=== PATIENT | female | born 1995 | race Caucasian/White ===

== ENCOUNTER 2020-01-21 13:53 | Emergency (ER) | payer BC, SELFPAY ==
--- NOTE | 2020-01-21 14:33 | HMH.EDUTC ---
[facility] [place] Disposition Clinical Impression: Viral syndrome Pharyngitis Qualifiers: Pharyngitis/tonsillitis etiology: unspecified etiology Qualified Code(s): J02.9 - Acute pharyngitis, unspecified Disposition: Home, Self-Care Condition on Discharge: Good Instructions: Sore Throat, DI for Pharyngitis/Tonsillopharyngitis -- Adult Additional Instructions: Drink plenty of fluids. Take tylenol or ibuprofen for pain or fever. Take the medications as directed. Follow up with your regular doctor. GO TO THE ER FOR ANY WORSENING SYMPTOMS FOLLOW THE DIRECTIONS ON THE COVID-19 HAND OUT THAT WE GAVE YOU REGARDING SELF-ISOLATION UNTIL YOU KNOW YOUR COVID-19 RESULTS Prescriptions: Azithromycin [Z-Smooth 250mg Tab*] 250 mg PO UD DOSE PK #6 tab Transmission Status: Received by [email or web address] Referrals: Sana Singleton [Primary Care Provider] - Forms: Work/School Release Time of Disposition: 15:01 Medical Decision Making - Medical Records Medical records reviewed: No: I reviewed the patient's medical records. - Anthony Inquiry Pt receiving controlled substance: No Vital Signs: 01/21/20 14:42 01/21/20 15:08 Temperature 98.3 F 98.3 F Temperature Source Oral Pulse Rate 67 Pulse Rate [Left Brachial] 67 Respiratory Rate 20 20 Blood Pressure 132/96 H Blood Pressure [Left Arm] 132/96 H Blood Pressure Mean [Left Arm] 108 Blood Pressure Source [Left Arm] Automatic Cuff Blood Pressure Position [Left Arm] Sitting 02 Sat by Pulse Oximetry 98 Oxygen Delivery Method Room Air - Lab Data Lab results reviewed: Yes: I reviewed the patient's lab results. Lab Results 01/21/20 14:40: Influenza Type A Ag Negative, Influenza Type B Ag Negative 01/21/20 14:40: Strep Scn [facility] Negative 01/21/20 14:50: COVID-19 PCR Not detected [facility] [place] HPI - General Stated complaint: vomiting,fever,chills Time Seen by Provider: 01/21/20 14:33 - History of Present Illness Provider Complaint: She c/o 3 days of sore throat, dry cough, and feeling bad. She works at a [employer]. She denies any known exposure to COVID-19. - Related Data Home Medications Medication Instructions Recorded Confirmed Buprenorphine HCl/Naloxone HCl 1.5 film PO DAILY 10/03/18 10/03/18 [Suboxone 8 mg-2 mg Sl Film] Previous Rx's Medication Instructions Recorded Nitrofurantoin Monohyd/M-Cryst 100 mg PO BID #6 cap 10/03/18 [Macrobid 100 mg Capsule] Promethazine HCl [Phenergan 25mg 25 mg RC Q6HP PRN #12 supp.rect 10/03/18 Suppository] raNITIdine HCl [Zantac] 150 mg PO BID #14 tab 10/03/18 Azithromycin [Z-Smooth 250mg Tab*] 250 mg PO UD DOSE PK #6 tab 01/21/20 Allergies Allergy/AdvReac Type Severity Reaction Status Date / Time loratadine [From CLARITIN] Allergy Intermediate I-RASH Verified 10/03/18 16:19 ondansetron Allergy Intermediate I-RASH Verified 10/03/18 16:19 [From ZOFRAN ( HYDROCHLORIDE)] Penicillins [PENICILLINS] Allergy Intermediate I-RASH Verified 10/03/18 16:19 acetaminophen [From Lortab] Allergy Verified 01/21/20 14:47 hydrocodone [From Lortab] Allergy Verified 01/21/20 14:47 [facility] History - Hepatitis A Screen Attestation statement:: This patient has been screened for Hepatitis A risk factors. I have reviewed the patient's past medical history: Yes Medical History: Denies:: Diabetes Mellitus Type 1, Diabetes Mellitus Type 2 - Social History Smoking Status: Never smoker Alcohol Intake: never Substance Use Type: former substance user Occupational Status: employed ROS Obtained: Yes All systems reviewed & no additional complaints - Constitutional Constitutional: Reports chills, Reports fever(s), Reports poor appetite, Reports malaise - Eyes Eyes: Denies blurry vision - ENT Ears, Nose, Mouth, and Throat: Denies dizziness - Cardiovascular Cardiovascular: Reports as per HPI Physical Exam - General General appearance: alert, in no apparent distress - Head He
[2020-01-21 14:40] VITALS: BMI 38.0
[2020-01-21 14:42] VITALS: BP 132/96; PULSE 67; RESP 20; TEMP 36.8; O2SAT 98; BMI 38.0
[2020-01-21 14:55] LABS: UTC Influenza A Antigen Negative (Negative); UTC Influenza B Antigen Negative (Negative); UTC Strep Screen (Rapid) Negative (Negative)
[2020-01-21 15:08] VITALS: BP 132/96; PULSE 67; RESP 20; TEMP 36.8; O2SAT 98
[2020-01-23 17:16] LABS: Covid-19 Nasal PCR Sendout UK Not Detected
== END 2020-01-21 15:09 | disposition home or self-care (01) ==
PROVIDERS: Emergency Provider Nurse Practitioner Family; PCP Nurse Practitioner Family
DX: B34.9 Viral infection, unspecified (principal); J02.9 Acute pharyngitis, unspecified; Z88.0 Allergy status to penicillin; Z88.5 Allergy status to narcotic agent; Z03.818 Encounter for observation for suspected exposure to other biological agents ruled out
CPT/HCPCS: 87804; 87880; 99202; U0003

== ENCOUNTER 2020-02-08 16:15 | Emergency (ER) | payer BC, SELFPAY ==
[2020-02-08 16:25] VITALS: BP 113/92; PULSE 74; RESP 16; TEMP 36.6; O2SAT 100; BMI 38.7
[2020-02-08 17:46] VITALS: PULSE 76; RESP 16; O2SAT 98
--- NOTE | 2020-02-08 18:12 | HMH.EDGENADL ---
ED Disposition Clinical Impression: Toothache, Abnormal vaginal bleeding Disposition: Home, Self-Care Condition on Discharge: Good Instructions: DI for Vaginal Bleeding, DI for Dental Pain Additional Instructions: See your dentist next week as scheduled. Toradol for pain. Clindamycin as prescribed. Call Dr. Simpson for follow-up of vaginal bleeding. Additional instructions for DENTAL PROBLEMS: See a dentist as soon as possible for further evaluation. Return immediately if you have an uncontrollable fever greater than 102 degrees, difficulty breathing or shortness of breath, persistent vomiting, or inability to swallow. Prescriptions: Ketorolac Tromethamine [Toradol 10mg tablet] 10 mg PO Q6HP PRN #10 tab PRN Reason: Moderate Pain Transmission Status: Received by [employer] clindamycin HCL [Clindamycin HCl 300mg Cap] 300 mg PO Q6 #28 cap Transmission Status: Received by [employer] Referrals: Isela Byrd [Primary Care Provider] - Ta Berrios MD [Staff Physician] - - Critical Care Critical Care Time: No Attestation: On 02/08/20, the high probability of a clinically significant, sudden or life threatening deterioration of the following system(s) required my full and direct attention, intervention and personal management. The time I documented below is in addition to time spent performing reported procedures but includes the following listed in this critical care notation. Medical Decision Making - Medical Records Medical records reviewed: Yes: I reviewed the patient's medical records. - Anthony Inquiry Pt receiving controlled substance: No Vital Signs: 02/08/20 16:25 02/08/20 17:46 02/08/20 18:48 Temperature 97.9 F 97.9 F Temperature Source Oral Oral Pulse Rate 70 Pulse Rate [Right Brachial] 74 76 Respiratory Rate 16 16 15 Blood Pressure 119/75 Blood Pressure [Right Arm] 113/92 H Blood Pressure Mean [Right Arm] 99 Blood Pressure Source [Right Arm] Automatic Cuff Blood Pressure Position [Right Arm] Sitting 02 Sat by Pulse Oximetry 100 98 Oxygen Delivery Method Room Air Room Air - Lab Data Lab Results 02/08/20 18:29: Urine HCG, Qual Negative Orders (Tests/Meds): ED MEDICATIONS Discontinued Medications Generic Name Dose Route Start Last Admin Trade Name Freq PRN Reason Stop Dose Admin Benzocaine/Butamben/Tetracaine HCl 1 gm 02/08/20 18:45 02/08/20 18:46 Cetacaine [place] TP 02/08/20 18:46 1 gm ONCE ONE Administration Clindamycin HCl 300 mg 02/08/20 18:38 02/08/20 18:41 Cleocin 150mg Capsule PO 02/08/20 18:39 300 mg ONCE ONE Administration Protocol Ketorolac Tromethamine 60 mg 02/08/20 18:38 02/08/20 18:41 Toradol 60mg/2ml Vial IM 02/08/20 18:39 60 mg ONCE ONE Administration Lidocaine HCl 15 ml 02/08/20 18:45 02/08/20 18:47 Lidocaine 2% Viscous Solution 15ml Udc PO 02/08/20 18:46 15 ml ONCE ONE Administration General Adult HPI - General Chief complaint: PAIN Stated complaint: DENTAL PAIN Time Seen by Provider: 02/08/20 18:12 Mode of Arrival: Ambulatory Limitations: No Limitations Description of Symptoms (Recalled from ER Triage Doc. by RN): Toothache - History of Present Illness HPI narrative: Left rearmost mandibular tooth ache for 1 month. Worse over the past week. Saw her dentist about 2-1/2 weeks ago. He told her she needed extracted. She has an appointment in 1 week. States that now she cannot sleep due to the pain. No fever. No facial swelling. Also states that while she is here she wants to let us know that she has had menstrual bleeding for 1 week. Prior tubal ligation. She is to see Dr. Hunter, has not seen a machine brusher in about a year. She is on Suboxone for opiate addiction. - Related Data Home Medications Medication Instructions Recorded Confirmed Buprenorphine HCl/Naloxone HCl 1.5 film PO DAILY 10/03/18 10/03/18 [Suboxone 8 mg-
[2020-02-08 18:33] LABS: Urine Pregnancy, HCG Qual. Negative (Negative)
[2020-02-08 18:48] VITALS: BP 119/75; PULSE 70; RESP 15; TEMP 36.6; O2SAT 99
== END 2020-02-08 18:48 | disposition home or self-care (01) ==
PROVIDERS: Emergency Provider Emergency Medicine; PCP Nurse Practitioner Family
DX: N93.9 Abnormal uterine and vaginal bleeding, unspecified (principal); K08.89 Other specified disorders of teeth and supporting structures
CPT/HCPCS: 81025; 96372; 99282

== ENCOUNTER 2020-05-20 06:28 | Emergency (ER) | payer BC, SELFPAY ==
[2020-05-20 06:36] VITALS: BP 162/90; PULSE 88; RESP 14; TEMP 37; O2SAT 96; BMI 40.7
--- NOTE | 2020-05-20 06:45 | HMH.EDDENT ---
ED Disposition Clinical Impression: Pain, dental Disposition: Home, Self-Care Condition on Discharge: Good Instructions: DI for Dental Pain Additional Instructions: use meds and see dentist and pcp for follow up Prescriptions: Minocycline HCl [Minocycline HCl 100mg Tab*] 100 mg PO BID #20 tab Prescription Printed Ketorolac Tromethamine [Toradol 10mg tablet] 10 mg PO Q6H 5 Days #20 tab Prescription Printed Referrals: Isela Byrd [Primary Care Provider] - - Critical Care Critical Care Time: No Attestation: On 05/20/20, the high probability of a clinically significant, sudden or life threatening deterioration of the following system(s) required my full and direct attention, intervention and personal management. The time I documented below is in addition to time spent performing reported procedures but includes the following listed in this critical care notation. Medical Decision Making - Medical Records Medical records reviewed: Yes: I reviewed the patient's medical records. - Anthony Inquiry Pt receiving controlled substance: No Vital Signs: 05/20/20 06:36 Temperature 98.6 F Temperature Source Oral Pulse Rate [Right Brachial] 88 Respiratory Rate 14 Blood Pressure [Right Arm] 162/90 H Blood Pressure Mean [Right Arm] 114 02 Sat by Pulse Oximetry 96 Orders (Tests/Meds): ED MEDICATIONS Discontinued Medications Generic Name Dose Route Start Last Admin Trade Name Kojo PRN Reason Stop Dose Admin Benzocaine/Butamben/Tetracaine HCl 1 gm 05/20/20 06:42 05/20/20 06:47 Tetracaine/Benzocaine/Butamben 56 Gm [place] TP 05/20/20 06:43 1 gm ONCE ONE Administration Lidocaine HCl 15 ml 05/20/20 06:42 05/20/20 06:47 Lidocaine 2% Viscous Theresa 15ml Udc PO 05/20/20 06:43 15 ml ONCE ONE Administration Dental HPI - General Chief complaint: Dental/Oral Stated complaint: Toothache Time Seen by Provider: 05/20/20 06:45 Mode of Arrival: Ambulatory Source of Information: Patient, Medical Record Limitations: No Limitations Description of Symptoms (Recalled from ER Triage Doc. by RN): pt c/o of throbbing tooth on lt bottom. pt states it broke off on morning. - History of Present Illness HPI Narrative: lt lower dental pain over the last few days MD Complaint: tooth pain Onset (ago): day(s) Severity: moderate Treatment prior to arrival: none - Related Data Home Medications Medication Instructions Recorded Confirmed Buprenorphine HCl/Naloxone HCl 1.5 film PO DAILY 10/03/18 10/03/18 [Suboxone 8 mg-2 mg Sl Film] Azithromycin [Z-Smooth 250mg Tab*] 250 mg PO UD DOSE PK 02/08/20 Nitrofurantoin Monohyd/M-Cryst 100 mg PO BID 02/08/20 [Macrobid 100 mg Capsule] raNITIdine HCl [Zantac] 150 mg PO BID 02/08/20 Previous Rx's Medication Instructions Recorded Promethazine HCl [Phenergan 25mg 25 mg RC Q6HP PRN #12 supp.rect 10/03/18 Suppository] Ketorolac Tromethamine [Toradol 10 mg PO Q6HP PRN #10 tab 02/08/20 10mg tablet] clindamycin HCL [Clindamycin HCl 300 mg PO Q6 #28 cap 02/08/20 300mg Cap] Ketorolac Tromethamine [Toradol 10 mg PO Q6H 5 Days #20 tab 05/20/20 10mg tablet] Minocycline HCl [Minocycline HCl 100 mg PO BID #20 tab 05/20/20 100mg Tab*] Allergies Allergy/AdvReac Type Severity Reaction Status Date / Time loratadine [From CLARITIN] Allergy Intermediate I-RASH Verified 02/08/20 16:30 ondansetron Allergy Intermediate I-RASH Verified 02/08/20 16:30 [From ZOFRAN ( HYDROCHLORIDE)] Penicillins [PENICILLINS] Allergy Intermediate I-RASH Verified 02/08/20 16:30 acetaminophen [From Lortab] Allergy Verified 02/08/20 16:30 hydrocodone [From Lortab] Allergy Verified 02/08/20 16:30 [facility] History - Hepatitis A Screen Drug use history?: No High risk sexual behaviors?: No History of sexually transmitted infection?: No Currently employed?: No Childcare worker?: No Do you have indoor plumbing?: Yes Do
[2020-05-20 07:03] VITALS: BP 147/93; PULSE 84; RESP 14; TEMP 37; O2SAT 97
== END 2020-05-20 07:05 | disposition home or self-care (01) ==
PROVIDERS: Emergency Provider Emergency Medicine; PCP Nurse Practitioner Family
DX: K08.89 Other specified disorders of teeth and supporting structures (principal); Z88.0 Allergy status to penicillin; Z88.5 Allergy status to narcotic agent
CPT/HCPCS: 96375; 99281

== ENCOUNTER 2020-06-11 18:30 | Emergency (ER) | payer BC, SELFPAY ==
--- NOTE | 2020-06-11 | ECG_ITS ---
APPROVED REPORT Exam: Resting ECG HR:65 bpm ECG Measurements Heart Rate 65 AXES [place] 176 P 58 QRSd 86 QRS 38 QT 440 T 37 QTc 457 Conclusion Normal sinus rhythm Normal ECG Electronically signed by : Yohannes Calloway, 06/12/2020 19:37:26
[2020-06-11 18:31] VITALS: BP 135/92; PULSE 67; RESP 16; TEMP 36.6; O2SAT 98; BMI 37.2
[2020-06-11 18:51] VITALS: BP 126/82; BP 135/92; PULSE 67; PULSE 90
--- NOTE | 2020-06-11 18:58 | HMH.EDGENADL ---
ED Disposition Clinical Impression: Dizziness on standing Migraine Qualifiers: Migraine type: with aura Status migrainosus presence: without status migrainosus Intractability: not intractable Qualified Code(s): G43.109 - Migraine with aura, not intractable, without status migrainosus Disposition: Home, Self-Care Condition on Discharge: Good Instructions: DI for Migraine Prescriptions: Meclizine HCl 25 mg PO BID #10 tab Transmission Status: Pending to [facility] Referrals: Isela Byrd [Primary Care Provider] - - Critical Care Critical Care Time: No Attestation: On 06/11/20, the high probability of a clinically significant, sudden or life threatening deterioration of the following system(s) required my full and direct attention, intervention and personal management. The time I documented below is in addition to time spent performing reported procedures but includes the following listed in this critical care notation. Medical Decision Making - Medical Records Medical records reviewed: Yes: I reviewed the patient's medical records. - Anthony Inquiry Pt receiving controlled substance: No Vital Signs: 06/11/20 18:31 06/11/20 18:51 Temperature 98 F Temperature Source Oral Pulse Rate [Orthostatic Lying] 67 Pulse Rate [Orthostatic Standing] 90 Pulse Rate [Radial] 67 Respiratory Rate 16 Blood Pressure [Orthostatic Lying] 135/92 H Blood Pressure [Orthostatic Standing] 126/82 Blood Pressure [Right Arm] 135/92 H Blood Pressure Mean [Right Arm] 106 Blood Pressure Position [Right Arm] Sitting 02 Sat by Pulse Oximetry 98 Oxygen Delivery Method Room Air - Lab Data Lab Results 06/11/20 18:50: Urine Color Yellow, Urine Appearance Clear, Urine pH 6.5, Ur Specific [place]ine 1.025, Urine Protein Negative, Urine Glucose (UA) Negative, Urine Ketones 1+, Urine Blood Negative, Urine Nitrate Negative, Urine Bilirubin Negative, Urine Urobilinogen 0.2, Ur Leukocyte Esterase Negative, Ur Squamous Epith Cells 20-50 06/11/20 18:50: Urine HCG, Qual Negative 06/11/20 19:11: WBC 8.7, RBC 4.75, Hgb 12.0 L, Hct 36.8 L, MCV 77.6 L, MCH 25.3 L, MCHC 32.6, RDW 14.9, Plt Count 378, MPV 8.8, Neut % (Auto) 71.7, Lymph % (Auto) 22.9, [place] % (Auto) 4.2, Eos % (Auto) 0.6, Baso % (Auto) 0.7, Neut # (Auto) 6.3, Lymph # (Auto) 2.0, [place] # (Auto) 0.4, Eos # (Auto) 0.1, Baso # (Auto) 0.1 06/11/20 19:11: Sodium 140, Potassium 3.8, Chloride 100, Carbon Dioxide 32 H, Anion Gap 11.8, BUN 9, Creatinine 0.50 L, Estimated Creat Clear 302 H, Estimated GFR 150, Est GFR ( Amer) 182, Glucose 99, Calcium 9.4, Total Bilirubin 0.5, AST 25, ALT 17, Alkaline Phosphatase 51, Total Protein 8.5 H, Albumin 4.6, Globulin 3.9 H, Albumin/Globulin Ratio 1.2 Result diagrams: 06/11/20 19:11 06/11/20 19:11 Orders (Tests/Meds): ED MEDICATIONS Generic Name Dose Route Start Last Admin Trade Name Freq PRN Reason Stop Dose Admin Sodium Chloride 1,000 mls @ 999 mls/hr 06/11/20 18:45 06/11/20 18:56 Sod Chlor 0.9% 1000ml Bag IV 06/11/20 19:45 999 mls/hr .Q1H1M MIRA Administration Discontinued Medications Generic Name Dose Route Start Last Admin Trade Name Freq PRN Reason Stop Dose Admin Diphenhydramine HCl 25 mg 06/11/20 18:43 06/11/20 19:32 Diphenhydramine 50mg/Ml Vial IV 06/11/20 18:44 25 mg ONCE ONE Administration Ketorolac Tromethamine 30 mg 06/11/20 18:43 06/11/20 19:34 Ketorolac 30mg/Ml Vial IM 06/11/20 18:44 Not Given ONCE ONE Ketorolac Tromethamine 30 mg 06/11/20 19:31 06/11/20 19:32 Ketorolac 30mg/Ml Vial IV 06/11/20 19:32 30 mg ONCE ONE Administration - ECG Data Tracing #1 ECG initial impression date: 06/11/20 ECG initial impression time: 19:52 ECG normal with no acute: arrhythmias, ischemia, conduction abnormalities, chamber hypertrophy - Reevaluation(s) Time: 19:48 Reevaluation #1: On reevaluation, the patient is feeling much better. Repeat neurologic exam is norm
[2020-06-11 19:07] LABS: Microscopic, Urine URINE MICROSCOPIC (MICROSCOPIC)
[2020-06-11 19:14] LABS: Appearance,Urine CLEAR (Clear); Bilirubin,Urine Negative (Negative); Blood, Urine Negative (Negative); Color,Urine YELLOW (Yellow); Glucose,Urine (UA) Negative (Negative); Ketones,Urine 1+ (Negative); Leukocyte Esterase,Urine Negative (Negative); Nitrate,Urine Negative (Negative); PH,Urine 6.5 (5.0-8.5); Protein,Urine Negative (Negative); Specific Gravity, Urine 1.025 (1.005-1.030); Urobilinogen,Urine 0.2 EU/dl (0.2)
[2020-06-11 19:15] LABS: Urine Pregnancy, HCG Qual. Negative (Negative)
[2020-06-11 19:16] LABS: Squamous Epithelial Cell,Urine 20-50 #/hpf (0-5)
[2020-06-11 19:19] LABS: Basophils # 0.1 K/mm3 (0-0.2); Basophils % 0.7 % (0.1-2.0); Eosinophils # 0.1 K/mm3 (0.0-0.4); Eosinophils % 0.6 % (0.1-12.0); Hematocrit 36.8 % (37.0-47.0); Lymphocytes % 22.9 % (10-50); Mean Corpuscular HGB Conc 32.6 g/dL (31.8-35.4); Mean Corpuscular Hemoglobin 25.3 pg (27.0-31.2); Mean Corpuscular Volume 77.6 fl (81-99); Mean Platelet Volume 8.8 fl (7.4-10.4); Monocytes # 0.4 K/mm3 (0.1-1.0); Monocytes % 4.2 % (1.7-9.3); Neutrophils # 6.3 K/mm3 (1.8-7.8); Neutrophils % 71.7 % (37.0-80.0); Platelet Count 378 K/mm3 (142-424); Red Blood Count 4.75 M/mm3 (4.20-5.40); Red Cell Distribution Width 14.9 % (11.5-17.5); White Blood Count 8.7 K/mm3 (4.8-10.8)
[2020-06-11 19:26] LABS: Chloride 100 mmol/L (98-107); Potassium 3.8 mmoL/L (3.5-5.1); Sodium 140 mmol/L (136-145)
[2020-06-11 19:28] LABS: Blood Urea Nitrogen 9 mg/dl (7-17); Creatinine Clearance Estimated 302 mL/min (50-200); Estimated Glomerular Filt Rate 150 ml/min (>60); GFR (African American) 182 ML/MIN (>60)
[2020-06-11 19:29] LABS: Alanine Aminotransferase 17 U/L (12-78); Albumin Level 4.6 g/dl (3.5-5.0); Albumin/Globulin Ratio 1.2 (1.1-1.8); Alkaline Phosphatase 51 U/L (38-126); Anion Gap 11.8 mEq/L (5-15); Aspartate Amino Transferase 25 U/L (14-36); Bilirubin,Total 0.5 mg/dl (0.2-1.3); Calcium 9.4 mg/dl (8.4-10.2); Carbon Dioxide 32 mmol/L (22.0-30.0); Globulin 3.9 g/dL (1.3-3.2); Glucose 99 mg/dl (74-100); Total Protein,Serum 8.5 g/dl (6.3-8.2)
[2020-06-11 20:03] VITALS: BP 135/46; PULSE 72; RESP 16; TEMP 36.7; O2SAT 100
== END 2020-06-11 20:13 | disposition home or self-care (01) ==
PROVIDERS: Emergency Provider Emergency Medicine; PCP Nurse Practitioner Family
DX: R42 Dizziness and giddiness (principal); G43.109 Migraine with aura, not intractable, without status migrainosus
CPT/HCPCS: 80053; 81001; 81025; 85025; 93005; 96365; 96375; 99282

== ENCOUNTER 2020-10-30 16:05 | Observation (INO) | payer BC, SELFPAY ==
[2020-10-30] VITALS (17 sets, daily range): BP systolic 106–169; BP diastolic 54–94; PULSE 67–94; RESP 14–20; TEMP 36.4–43; O2SAT 90–99; BMI 36.8
--- NOTE | 2020-10-30 16:13 | PC.NURSE ---
REPORT CALLED TO SUMAYA LOPEZ RN
--- NOTE | 2020-10-30 16:40 | CT_ITS ---
PROCEDURE INFORMATION: Exam: CT Abdomen And Pelvis With Contrast Exam date and time: 10/30/2020 4:40 PM Age: 25 years old Clinical indication: Abdominal pain; Localized; Right lower quadrant (rlq); Additional info: Rlq pain TECHNIQUE: Imaging protocol: Computed tomography of the abdomen and pelvis with contrast. Radiation optimization: All CT scans at this facility use at least one of these dose optimization techniques: automated exposure control; mA and/or kV adjustment per patient size (includes targeted exams where dose is matched to clinical indication); or iterative reconstruction. Contrast material: ISOVUE; Contrast volume: 75 ml; Contrast route: IV; COMPARISON: [id number] CT abdomen pelvis w con 04/11/2018 8:18 AM FINDINGS: Liver: Normal. No mass. Gallbladder and bile ducts: There has been prior cholecystectomy. Pancreas: Normal. No ductal dilation. Spleen: Normal. No splenomegaly. Adrenal glands: Normal. No mass. Kidneys and ureters: Normal. No hydronephrosis. Stomach and bowel: Unremarkable. No obstruction. No mucosal thickening. Appendix: The appendix is dilated measuring 11 mm and demonstrates surrounding fatty induration with mild mucosal enhancement. No appendicoliths is seen. No associated focal fluid collection to suggest abscess or intraperitoneal air is seen to suggest perforation. These findings are consistent with acute appendicitis. Intraperitoneal space: See Appendix finding. Vasculature: Unremarkable. No abdominal aortic aneurysm. Lymph nodes: Unremarkable. No enlarged lymph nodes. Urinary bladder: Unremarkable as visualized. Reproductive: Unremarkable as visualized. Bones/joints: Unremarkable. No acute fracture. Soft tissues: Unremarkable. IMPRESSION: The appendix is dilated measuring 11 mm and demonstrates surrounding fatty induration with mild mucosal enhancement. No appendicoliths is seen. No associated focal fluid collection to suggest abscess or intraperitoneal air is seen to suggest perforation. These findings are consistent with acute appendicitis.
[2020-10-30 16:49] LABS: Chloride 101 mmol/L (98-107)
[2020-10-30 16:50] LABS: Basophils % 0.5 % (0.1-2.0); Eosinophils # 0.1 K/mm3 (0.0-0.4); Eosinophils % 1.2 % (0.1-12.0); Hemoglobin 9.8 g/dL (12.2-16.2); Lymphocytes # 1.8 K/mm3 (0.7-4.5); Mean Corpuscular HGB Conc 32.8 g/dL (31.8-35.4); Mean Corpuscular Volume 76.3 fl (81-99); Mean Platelet Volume 7.8 fl (7.4-10.4); Monocytes # 0.3 K/mm3 (0.1-1.0); Monocytes % 4.5 % (1.7-9.3); Neutrophils # 4.9 K/mm3 (1.8-7.8); Neutrophils % 68.7 % (37.0-80.0); Platelet Count 361 K/mm3 (142-424); Potassium 3.9 mmoL/L (3.5-5.1); Red Blood Count 3.94 M/mm3 (4.20-5.40); Red Cell Distribution Width 15.9 % (11.5-17.5); Sodium 138 mmol/L (136-145); White Blood Count 7.2 K/mm3 (4.8-10.8)
[2020-10-30 16:52] LABS: Alanine Aminotransferase 18 U/L (12-78); Aspartate Amino Transferase 27 U/L (14-36); Blood Urea Nitrogen 7 mg/dl (7-17); Creatinine Clearance Estimated 287 mL/min (50-200); Estimated Glomerular Filt Rate 149 ml/min (>60); GFR (African American) 180 ML/MIN (>60)
[2020-10-30 16:53] LABS: Albumin Level 4.3 g/dl (3.5-5.0); Albumin/Globulin Ratio 1.3 (1.1-1.8); Alkaline Phosphatase 59 U/L (38-126); Anion Gap 10.9 mEq/L (5-15); Bilirubin,Total 0.2 mg/dl (0.2-1.3); Calcium 8.6 mg/dl (8.4-10.2); Carbon Dioxide 30 mmol/L (22.0-30.0); Globulin 3.3 g/dL (1.3-3.2); Glucose 75 mg/dl (74-100); Lipase 63 U/L (23-300); Total Protein,Serum 7.6 g/dl (6.3-8.2)
[2020-10-30 17:13] LABS: Microscopic, Urine URINE MICROSCOPIC (MICROSCOPIC)
--- NOTE | 2020-10-30 17:13 | HMH.EDABDPAI ---
ED Disposition Clinical Impression: Acute appendicitis Qualifiers: Acute appendicitis type: with localized peritonitis Appendicitis gangrene presence: without gangrene Appendicitis perforation presence: without perforation Appendicitis abscess presence: without abscess Qualified Code(s): K35.30 - Acute appendicitis with localized peritonitis, without perforation or gangrene Disposition: Admitted As Inpatient Condition on Discharge: Serious Instructions: DI for Acute Abdominal Pain Referrals: Isela Byrd [Primary Care Provider] - - Critical Care Critical Care Time: No Attestation: On 10/30/20, the high probability of a clinically significant, sudden or life threatening deterioration of the following system(s) required my full and direct attention, intervention and personal management. The time I documented below is in addition to time spent performing reported procedures but includes the following listed in this critical care notation. Medical Decision Making - Medical Records Medical records reviewed: Yes: I reviewed the patient's medical records. - Anthony Inquiry Pt receiving controlled substance: No Vital Signs: 10/30/20 16:06 10/30/20 18:15 10/30/20 19:00 Temperature 98 F Temperature Source Oral Pulse Rate 89 69 Pulse Rate [Radial] 75 Respiratory Rate 16 Blood Pressure 139/86 131/82 Blood Pressure [Right Radial Artery] 132/74 Blood Pressure Mean [Right Radial Artery] 93 Blood Pressure Position Sitting Blood Pressure Position [Right Radial Artery] Sitting 02 Sat by Pulse Oximetry 98 99 Oxygen Delivery Method Room Air - Lab Data Lab Results 10/30/20 16:11: Urine Color Yellow, Urine Appearance Clear, Urine pH 6.0, Ur Specific [place] >= 1.030, Urine Protein Trace, Urine Glucose (UA) Negative, Urine Ketones Negative, Urine Blood Negative, Urine Nitrate Negative, Urine Bilirubin Negative, Urine Urobilinogen 0.2, Ur Leukocyte Esterase Negative, Urine RBC Occasional, Urine WBC Occasional, Ur Squamous Epith Cells 10-20, Urine Bacteria 1+, Urine Mucus 1+ 10/30/20 16:11: Urine HCG, Qual Negative 10/30/20 16:24: WBC 7.2, RBC 3.94 L, Hgb 9.8 L, Hct 30.0 L, MCV 76.3 L, MCH 25.0 L, MCHC 32.8, RDW 15.9, Plt Count 361, MPV 7.8, Neut % (Auto) 68.7, Lymph % (Auto) 25.0, [place] % (Auto) 4.5, Eos % (Auto) 1.2, Baso % (Auto) 0.5, Neut # (Auto) 4.9, Lymph # (Auto) 1.8, [place] # (Auto) 0.3, Eos # (Auto) 0.1, Baso # (Auto) 0.0 10/30/20 16:24: Sodium 138, Potassium 3.9, Chloride 101, Carbon Dioxide 30, Anion Gap 10.9, BUN 7, Creatinine 0.50 L, Estimated Creat Clear 287, Estimated GFR 149, Est GFR ( Amer) 180, Glucose 75, Calcium 8.6, Total Bilirubin 0.2, AST 27, ALT 18, Alkaline Phosphatase 59, Total Protein 7.6, Albumin 4.3, Globulin 3.3 H, Albumin/Globulin Ratio 1.3 10/30/20 16:24: Lipase 63 Result diagrams: 10/30/20 16:24 10/30/20 16:24 Orders (Tests/Meds): ED MEDICATIONS Generic Name Dose Route Start Last Admin Trade Name Freq PRN Reason Stop Dose Admin Sodium Chloride 1,000 mls @ 999 mls/hr 10/30/20 16:45 10/30/20 16:46 Sod Chlor 0.9% 1000ml Bag IV 10/30/20 17:45 999 mls/hr .Q1H1M MIRA Administration Discontinued Medications Generic Name Dose Route Start Last Admin Trade Name Freq PRN Reason Stop Dose Admin Hydromorphone HCl 2 mg 10/30/20 19:06 10/30/20 19:08 Hydromorphone 2mg/Ml Syringe IV 10/30/20 19:07 Not Given ONCE ONE Hydromorphone HCl 1 mg 10/30/20 19:08 10/30/20 19:09 Hydromorphone 2mg/Ml Syringe IV 10/30/20 19:09 1 mg ONCE ONE Administration Iopamidol 75 ml 10/30/20 18:09 10/30/20 18:10 Iopamidol-370 (76%);100ml Bottle IV 10/30/20 18:10 75 ml ONCE ONE Administration Ketorolac Tromethamine 30 mg 10/30/20 16:41 10/30/20 16:46 Ketorolac 30mg/Ml Vial IV 10/30/20 16:42 30 mg ONCE ONE Administration Morphine Sulfate 4 mg 10/30/20 18:09 10/30/20 18:11 Morphine 4mg/Ml Syringe IV 10/30/20 18:10 4 mg ONCE ONE Ad
--- NOTE | 2020-10-30 17:30 | PC.NURSE ---
lab states approx 5 minutes until result of urine test
[2020-10-30 17:34] LABS: Urine Pregnancy, HCG Qual. Negative (Negative)
[2020-10-30 17:40] LABS: Appearance,Urine CLEAR (Clear); Bilirubin,Urine Negative (Negative); Blood, Urine Negative (Negative); Color,Urine YELLOW (Yellow); Glucose,Urine (UA) Negative (Negative); Ketones,Urine Negative (Negative); Leukocyte Esterase,Urine Negative (Negative); Nitrate,Urine Negative (Negative); Protein,Urine TRACE (Negative); Specific Gravity, Urine >= 1.030 (1.005-1.030); Urobilinogen,Urine 0.2 EU/dl (0.2)
[2020-10-30 18:09] LABS: Bacteria,Urine 1+ /lpf; Mucus,Urine 1+ /lpf; RBC,Urine Occasional #/hpf (0-3); WBC,Urine Occasional #/hpf (0-3)
--- NOTE | 2020-10-30 18:39 | PC.NURSE ---
DR ALBARADO PAGED
--- NOTE | 2020-10-30 18:56 | PC.NURSE ---
PT CHANGED INTO HOSPITAL GOWN AND PERSONAL ITEMS PLACED IN BELONGING BAGS
--- NOTE | 2020-10-30 19:11 | PC.NURSE ---
OR team called in. Spoke with Leslee, and Jillian Seth spoke with admission appliance parts counter clerk reported that she was here in the building.
--- NOTE | 2020-10-30 19:37 | HMH.GSHP ---
HPI HPI: Patient is a 25-year-old female from [place]. She presented to the emergency department with some right lower abdominal discomfort which has been present for the last 3 days. It started on Friday10/27/20 with a dull nagging pain in her right lower side and intensified over the weekend. Associated with some mild nausea, but no vomiting. She states that the pain doubled her over today and is why she presented to the emergency department. She was evaluated emergency department and underwent CT scan which revealed findings of thickened distended appendix with stranding consistent with acute appendicitis. Surgical consultation was obtained. [facility] History I have reviewed the patient's past medical history: Yes Medical History: Denies:: Diabetes Mellitus Type 1, Diabetes Mellitus Type 2 *Have you ever received a pneumonia vaccine?: No *Have you received a flu vaccine this season?: No - *Social History Smoking Status: Never smoker Alcohol Intake: never Substance Use Type: opiates *Occupational Status:: employed *Travel in the last 8 weeks: None Family Hx:: Non-contributory Review of Systems - Review of Systems Review of systems:: pertinent systems reviewed and negative unless documented below - *Neurologic Denies headache(s) Meds Home Medications Medication Instructions Recorded Confirmed Type Buprenorphine HCl/Naloxone HCl 1.5 film PO DAILY 10/03/18 10/30/20 History [Suboxone 8 mg-2 mg Sl Film] raNITIdine HCl [Zantac] 150 mg PO BID 02/08/20 10/30/20 History Fluoxetine HCl 20 mg PO DAILY 10/30/20 10/30/20 History Allergies Allergy/AdvReac Type Severity Reaction Status Date / Time loratadine [From CLARITIN] Allergy Intermediate I-RASH Verified 02/08/20 16:30 ondansetron Allergy Intermediate I-RASH Verified 02/08/20 16:30 [From ZOFRAN ( HYDROCHLORIDE)] Penicillins [PENICILLINS] Allergy Intermediate I-RASH Verified 02/08/20 16:30 acetaminophen [From Lortab] Allergy Verified 02/08/20 16:30 hydrocodone [From Lortab] Allergy Verified 02/08/20 16:30 Exam Vital signs and Labs for Last 24 Hours: Temp Pulse Resp BP Pulse Ox 98 F 69 16 131/82 99 10/30/20 16:06 10/30/20 19:00 10/30/20 16:06 10/30/20 19:00 10/30/20 19:00 Laboratory Results - last 24 hr 10/30/20 16:11: Urine Color Yellow, Urine Appearance Clear, Urine pH 6.0, Ur Specific [place] >= 1.030, Urine Protein Trace, Urine Glucose (UA) Negative, Urine Ketones Negative, Urine Blood Negative, Urine Nitrate Negative, Urine Bilirubin Negative, Urine Urobilinogen 0.2, Ur Leukocyte Esterase Negative, Urine RBC Occasional, Urine WBC Occasional, Ur Squamous Epith Cells 10-20, Urine Bacteria 1+, Urine Mucus 1+ 10/30/20 16:11: Urine HCG, Qual Negative 10/30/20 16:24: WBC 7.2, RBC 3.94 L, Hgb 9.8 L, Hct 30.0 L, MCV 76.3 L, MCH 25.0 L, MCHC 32.8, RDW 15.9, Plt Count 361, MPV 7.8, Neut % (Auto) 68.7, Lymph % (Auto) 25.0, [place] % (Auto) 4.5, Eos % (Auto) 1.2, Baso % (Auto) 0.5, Neut # (Auto) 4.9, Lymph # (Auto) 1.8, [place] # (Auto) 0.3, Eos # (Auto) 0.1, Baso # (Auto) 0.0 10/30/20 16:24: Sodium 138, Potassium 3.9, Chloride 101, Carbon Dioxide 30, Anion Gap 10.9, BUN 7, Creatinine 0.50 L, Estimated Creat Clear 287, Estimated GFR 149, Est GFR ( Amer) 180, Glucose 75, Calcium 8.6, Total Bilirubin 0.2, AST 27, ALT 18, Alkaline Phosphatase 59, Total Protein 7.6, Albumin 4.3, Globulin 3.3 H, Albumin/Globulin Ratio 1.3 10/30/20 16:24: Lipase 63 I & O for Last 24 hours: Intake & Output 10/28/20 10/29/20 10/30/20 10/31/20 11:59 11:59 11:59 11:59 Weight 235 lb - Constitutional no acute distress - *Routine HEENT Exam Head: Present: normocephalic Eye: Present: EOMI, PERRL ENT: Present: mucous membranes moist - *Routine Neck Exam Present: supple. Absent: lymphadenopathy - *Routine Respiratory Exam Present: CTA bilaterally - *Routine Cardiovascular Exam Present: RRR - *Routine Abdominal Exam Present: soft, normoacti
--- NOTE | 2020-10-30 19:49 | HMH.ANESCL ---
[facility] Anesthesia Checklist - Patient Identification Patient Identification: Arm Band - Structural Data Admitted From: Home Planned Operative Procedure/s: Lap. appendectomy Consent for Planned Operative Procedure(s) Verified: Yes - NPO Status Verified Time NPO: 08:00 (Breakfast) - Airway Assessment C-Spine Mobility Assessed: Yes TMJ Mobility Assessed: Yes Dentition: Good Dentition - Neurological Assessment Level of Consciousness: Awake Hx Seizures: No Numbness or tingling in extremities: No - Anesthesia Plan Anesthesia Risk discussed: Yes Anesthesia Plan: Verified ASA Class: II Anesthesia Type: General [facility] History I have reviewed the patient's past medical history: Yes Medical History: Reports:: Anxiety, Depression Denies:: Diabetes Mellitus Type 1, Diabetes Mellitus Type 2 *Have you ever received a pneumonia vaccine?: No *Have you received a flu vaccine this season?: No Anesthesia experience/problems:: None - *Social History Smoking Status: Never smoker Alcohol Intake: never Substance Use Type: opiates *Occupational Status:: employed *Travel in the last 8 weeks: None Family Hx:: Non-contributory
--- NOTE | 2020-10-30 21:18 | HMH.OPNOTE ---
Date of procedure: 10/30/20 Pre-op Diagnosis:: Acute appendicitis Post-op Diagnosis:: Same Procedure performed:: Laparoscopic appendectomy Surgeon:: John Puentes MD FIREWALL SECURITY ENGINEER:: Other Anesthesia: GETA Estimated blood loss (mL): 25 Clinical Note:: 25-year-old female. She states that on 10/28/2019 when she developed right lower quadrant abdominal pain. This persisted and progressed through the weekend. Became more severe and somewhat doubled her over on 10/31/2019. She therefore presented to the emergency department. Work-up included CT scan of the abdomen pelvis which revealed findings of thickened indurated inflamed appendix. Surgical consultation was obtained and arrangements were made for appendectomy. Operative findings:: Patient had a severely inflamed indurated appendix adherent posterior to the ileum. Surrounding tissues were markedly indurated. Operative note:: Consent was obtained patient was taken to the operating room. She was given preoperative intravenous ceftriaxone. In the operating room she was placed in a supine position. General anesthesia was induced via endotracheal tube. Abdomen was prepped and draped in the standard surgical fashion. Infraumbilical skin incision was made and while performing abdominal wall lift Veress needle was inserted. CO2 pneumoperitoneum was achieved to 15 mmHg. 12 mm optical trocar was inserted at the umbilicus. Intraperitoneal contents were visualized. She was positioned in Trendelenburg left side down. 5 mm trocar was inserted in the left lower abdomen. Additional 5 mm trocar was inserted in the right upper abdomen. 30 degree 5 mm laparoscope was inserted through the right upper abdominal trocar site. The appendix was identified and found to be markedly indurated. It was adherent posterior to the terminal ileum to the retroperitoneum. Surrounding tissues were markedly indurated as well and inflamed. Delivery of the appendix anteriorly was profoundly difficult due to its severe inflammation. Ultimately the appendix was freed from its inflammatory adhesions. Mesoappendix was markedly inflamed and indurated. Careful dissection was carried out dividing the mesoappendix with ALEXANDER ultrasonic harmonic jasbir with care taken to coagulate the appendiceal artery and the process. Ultimately dissection was carried down to the appendiceal base which was relatively spared of inflammation. The appendix was divided at its base with an endoscopic SHELBI linear cutting stapling device. Appendix was placed within an Endo Catch retrieval device removed from the peritoneal cavity via the umbilical trocar site which required some generous extension of the fascial incision for delivery of the large indurated appendix. Appendiceal staple line was then inspected for integrity and hemostasis which was assured. Limited irrigation was performed of the pericecal location and pelvis. Irrigation was carried out until clear. Trochars were then removed as CO2 pneumoperitoneum was evacuated. Fascia at the umbilicus was closed with interrupted 0 Vicryl sutures. Local anesthetic was infiltrated. Skin incisions were closed with 4-0 Monocryl in a subcuticular fashion. Steri-Strips and dressings were applied. Condition: stable Disposition: PACU Specimens:: Appendix Complications:: None immediately apparent
--- NOTE | 2020-10-30 21:30 | HMH.ANESI ---
[facility] Anesthesia Record Part I Intake, IV Amount: 1,300 Estimated blood loss (mL): 20 Urine output (mL): 0 Blood Pressure: 141/78 SaO2: 97 Pulse Rate: 94 Respiratory Rate: 14 Temperature: 97.6 F Patient is:: Awake Stable to PACU at:: 21:28
--- NOTE | 2020-10-30 22:11 | PC.NURSE ---
report received from Dorinda in PACU
--- NOTE | 2020-10-30 22:22 | SUR.PHASEI ---
2139 0.5mg dilaudid administered IVP per verbal order Oralia Mauricio 2209 2mg morphine adminstered IVP per verbal order Oralia Mauricio
--- NOTE | 2020-10-30 22:25 | PC.NURSE ---
PATIENT ON UNIT AT THIS TIME VIA STRETCHER AND OR STAFF.
--- NOTE | 2020-10-30 22:35 | PC.NURSE ---
DR. ALBARADO NOTIFIED AT THIS TIME OF PT BEING VERY NAUSEATED. ORDER FOR PHENERGAN 12.5 MG IV Q6H PRN FOR NAUSEA.. ORDER R/V. ALSO, ORDER TO RETIME POST-OP ROCHEPHIN FOR 10/31/20 AT 2130
[2020-10-30 23:13] LABS: Microscopic,Cath URINE MICROSCOPIC (MICROSCOPIC)
[2020-10-30 23:16] LABS: Appearance,Urine/Cath CLEAR (Clear); Bilirubin,Cath Negative (Negative); Blood, Urine/Cath Negative (Negative); Color,Urine/Cath YELLOW (Yellow); Glucose,Urine/Cath (UA) Negative (Negative); Ketones,Urine/Cath Negative (Negative); Leukocyte Esterase,Cath Negative (Negative); Nitrate,Cath Negative (Negative); PH,Urine/Cath 6.5 (5.0-8.5); Protein,Urine/Cath Negative (Negative); Specific Gravity, Urine/Cath 1.015 (1.005-1.030); Urobilinogen,Cath 0.2 EU/dl (0.2)
[2020-10-30 23:24] LABS: Bacteria,Urine/Cath TRACE /lpf
[2020-10-31] VITALS (13 sets, daily range): BP systolic 100–139; BP diastolic 59–82; PULSE 48–83; RESP 17–20; TEMP 36.4–37; O2SAT 97–100
--- NOTE | 2020-10-31 01:00 | PC.NURSE ---
PATIENT AMBULATED TO BATHROOM AT THIS TIME. TOLERATED AMBULATION WELL. VOIDED SATISFACTORY AMOUNT WITHOUT DIFFICULTY.
--- NOTE | 2020-10-31 04:15 | PC.NURSE ---
PT HAS RESTED WELL THIS SHIFT. SHE STRUGGLED WITH NAUSEA AND VOMITING THAT WAS MOSTLY RELIEVED WITH PRN MEDICATION. SHE HAS AMBULATED TO AND FROM THE BATHROOM 3 TIMES AND HAD A STEADY GAIT. SHE HAS DENIED PAIN AND DECLINED ALL PAIN MEDICATION. VSS. IV PATENT AND INFUSING WELL IN THE L A/C. LR RUNNING AT 125ML/HR. SHE IS A&O X4, HER LUNGS ARE CTAB, BOWELS ARE HYPOACTIVE IN ALL QUADRANTS. PATIENT BEGINNING TO TAKE IN CLEAR LIQUIDS AND IS TOLERATING WELL.
--- NOTE | 2020-10-31 06:10 | PC.NURSE ---
LAB AT BEDSIDE
[2020-10-31 06:45] LABS: Basophils % 0.4 % (0.1-2.0); Eosinophils % 0.2 % (0.1-12.0); Hematocrit 28.9 % (37.0-47.0); Hemoglobin 9.5 g/dL (12.2-16.2); Lymphocytes # 1.8 K/mm3 (0.7-4.5); Lymphocytes % 17.2 % (10-50); Mean Corpuscular HGB Conc 32.8 g/dL (31.8-35.4); Mean Corpuscular Hemoglobin 25.2 pg (27.0-31.2); Mean Corpuscular Volume 76.6 fl (81-99); Mean Platelet Volume 7.3 fl (7.4-10.4); Monocytes # 0.3 K/mm3 (0.1-1.0); Monocytes % 3.1 % (1.7-9.3); Neutrophils # 8.1 K/mm3 (1.8-7.8); Neutrophils % 79.2 % (37.0-80.0); Platelet Count 345 K/mm3 (142-424); Red Blood Count 3.77 M/mm3 (4.20-5.40); Red Cell Distribution Width 15.7 % (11.5-17.5); White Blood Count 10.2 K/mm3 (4.8-10.8)
[2020-10-31 07:02] LABS: Chloride 104 mmol/L (98-107); Sodium 137 mmol/L (136-145)
[2020-10-31 07:05] LABS: Blood Urea Nitrogen 2 mg/dl (7-17); Creatinine Clearance Estimated 359 mL/min (50-200); Estimated Glomerular Filt Rate 193 ml/min (>60); GFR (African American) 233 ML/MIN (>60)
--- NOTE | 2020-10-31 07:05 | P.PN_ITS ---
Subjective Narrative: Patient has had some appreciable nausea overnight ultimately relieved with Phenergan. Currently resting comfortably. Progress Note: A&P Assessment and Plan for All Diagnoses:: Continue clear liquids for now. Given the severity of appendicitis continued inpatient stay with antibiotics and possible discharge tomorrow. Exam Vital signs and Labs for Last 24 Hours: Temp Pulse Resp BP Pulse Ox 98.3 F 53 L 17 108/79 L 100 10/31/20 05:30 10/31/20 05:30 10/31/20 05:30 10/31/20 05:30 10/31/20 05:30 Laboratory Results - last 24 hr 10/30/20 16:11: Urine Color Yellow, Urine Appearance Clear, Urine pH 6.0, Ur Specific [place] >= 1.030, Urine Protein Trace, Urine Glucose (UA) Negative, Urine Ketones Negative, Urine Blood Negative, Urine Nitrate Negative, Urine Bilirubin Negative, Urine Urobilinogen 0.2, Ur Leukocyte Esterase Negative, Urine RBC Occasional, Urine WBC Occasional, Ur Squamous Epith Cells 10-20, Urine Bacteria 1+, Urine Mucus 1+ 10/30/20 16:11: Urine HCG, Qual Negative 10/30/20 16:24: WBC 7.2, RBC 3.94 L, Hgb 9.8 L, Hct 30.0 L, MCV 76.3 L, MCH 25.0 L, MCHC 32.8, RDW 15.9, Plt Count 361, MPV 7.8, Neut % (Auto) 68.7, Lymph % (Auto) 25.0, [place] % (Auto) 4.5, Eos % (Auto) 1.2, Baso % (Auto) 0.5, Neut # (Auto) 4.9, Lymph # (Auto) 1.8, [place] # (Auto) 0.3, Eos # (Auto) 0.1, Baso # (Auto) 0.0 10/30/20 16:24: Sodium 138, Potassium 3.9, Chloride 101, Carbon Dioxide 30, Anion Gap 10.9, BUN 7, Creatinine 0.50 L, Estimated Creat Clear 287, Estimated GFR 149, Est GFR ( Amer) 180, Glucose 75, Calcium 8.6, Total Bilirubin 0.2, AST 27, ALT 18, Alkaline Phosphatase 59, Total Protein 7.6, Albumin 4.3, Globulin 3.3 H, Albumin/Globulin Ratio 1.3 10/30/20 16:24: Lipase 63 10/30/20 20:04: Urine Color Yellow, Urine Appearance Clear, Urine pH 6.5, Ur Specific [place] 1.015, Urine Protein Negative, Urine Glucose (UA) Negative, Urine Ketones Negative, Urine Blood Negative, Urine Nitrate Negative, Urine Bilirubin Negative, Urine Urobilinogen 0.2, Ur Leukocyte Esterase Negative, Urine RBC None, Urine WBC 3-5, Ur Squamous Epith Cells 5-10, Urine Bacteria Trace 10/31/20 06:17: WBC 10.2 D, RBC 3.77 L, Hgb 9.5 L, Hct 28.9 L, MCV 76.6 L, MCH 25.2 L, MCHC 32.8, RDW 15.7, Plt Count 345, MPV 7.3 L, Neut % (Auto) 79.2, Lymph % (Auto) 17.2, [place] % (Auto) 3.1, Eos % (Auto) 0.2, Baso % (Auto) 0.4, Neut # (Auto) 8.1 H, Lymph # (Auto) 1.8, [place] # (Auto) 0.3, Eos # (Auto) 0.0, Baso # (Auto) 0.0 I & O for Last 24 hours: Intake & Output 10/28/20 10/29/20 10/30/20 10/31/20 11:59 11:59 11:59 11:59 Intake Total 2300 / 2300 Output Total 450 / 450 Balance 1850 / 1850 Weight 235 lb Microbiology Reports for the Last 24 Hours: Microbiology 10/30/20 19:10 Nasopharyngeal Coronavirus COVID-19 PCR - Final Narrative: Resting
[2020-10-31 07:06] LABS: Calcium 8.1 mg/dl (8.4-10.2); Carbon Dioxide 29 mmol/L (22.0-30.0); Glucose 105 mg/dl (74-100)
--- NOTE | 2020-10-31 07:19 | HMH.PHAVTE ---
[facility] Pharmacy VTE Monitoring - Patient Demographics Admission date: 10/30/20 Report Date: 10/31/20 Time: 07:19 Allergies/Adverse Reactions: Patient Allergies loratadine [From CLARITIN] Allergy (Intermediate, Verified 02/08/20 16:30) I-RASH ondansetron [From ZOFRAN ( HYDROCHLORIDE)] Allergy (Intermediate, Verified 02/08/20 16:30) I-RASH Penicillins [PENICILLINS] Allergy (Intermediate, Verified 02/08/20 16:30) I-RASH acetaminophen [From Lortab] Allergy (Verified 02/08/20 16:30) hydrocodone [From Lortab] Allergy (Verified 02/08/20 16:30) Height: 1.7 m Weight: 106.594 kg Patient Problems: Current Active Problems Acute appendicitis (Acute) - VTE Risk Labs: VTE Related Lab Results Hgb 9.5 g/dL (12.2-16.2) L 10/31/20 06:17 Hct 28.9 % (37.0-47.0) L 10/31/20 06:17 Plt Count 345 K/mm3 (142-424) 10/31/20 06:17 BUN 2 mg/dl (7-17) L D 10/31/20 06:17 Creatinine 0.40 mg/dl (0.52-1.04) L 10/31/20 06:17 Estimated Creat Clear 359 mL/min (50-200) H 10/31/20 06:17 Was VTE Risk Assessment Performed: Yes VTE Score: 2 VTE Risk Level: Very Low Risk - Prophylaxis VTE Prophylaxis Ordered?: Yes Types of VTE Prophylaxis: TEDS Knee High Location of Applied Device: Bilateral Lower Extremeties
--- NOTE | 2020-10-31 07:43 | HMH.PHAINT ---
MEDICATION RECONCILIATION COMPLETED ON PATIENT USING EXTERNAL FILL HISTORY FROM PHARMACY. -LIDIA YBARRA, GABBYD
--- NOTE | 2020-10-31 07:56 | HMH.ANESII ---
[facility] Anesthesia Record Part II Discharge Time: 22:18 Destination: Obstetric PACU nurse assessment reviewed?: Yes Patient Condition:: Good Anesthesia Complications:: None Swallowing reflex intact?: Yes Cyanosis?: No Blood Pressure: 139/79 Pulse Rate: 74 Temperature: 97.6 F Mental Status: Alert & Oriented Pain level:: 2 Nausea and/or vomitting:: None Intake, IV Amount: 0
--- NOTE | 2020-10-31 08:20 | PC.NURSE ---
Patient awoken briefly for exam, but went back to sleep. resp. equal and unlabored. no needs.
--- NOTE | 2020-10-31 12:20 | PC.NURSE ---
PT SITTING UP IN CHAIR. PT REPORTS SHE IS COMFORTABLE. NO NEEDS.
--- NOTE | 2020-10-31 14:48 | PC.NURSE ---
WENT IN TO GIVE PATIENT MIRA PROZAC. PT SOUND ASLEEP. WILL GIVEN WHEN PATIENT IS AWAKE.
--- NOTE | 2020-10-31 16:40 | PC.NURSE ---
No changes noted in previous assessment. Reports being sore. Lungs cta and bowel sounds hypoactivex4. Reported to nursing staff a bowel movement today. iv in left a/c. adequate output. 3 lap sites noted c/d/i. abd tenderness, no distention noted. no needs. pt requests pudding.
--- NOTE | 2020-10-31 18:35 | PC.NURSE ---
pt resting in bed watching tv. reports no needs and no needs for pain meds. report to be given to oncoming nurse. patient has had adequate output today.
[2020-11-01] VITALS: BP 121/71; PULSE 53; RESP 18; TEMP 36.7; O2SAT 99
[2020-11-01 04:25] VITALS: BP 122/75; PULSE 54; RESP 18; TEMP 36.7; O2SAT 97
--- NOTE | 2020-11-01 04:44 | PC.NURSE ---
Patient has done well this shift. Pain well controlled with PRN pain medication. No issues with nausea. Patient tolerates ambulation and increased diet well. Bowel sounds remain hypoactive, and lungs are ctab. IV in right a/c is patent and infusing LR at 125ml/hr well. VSS throughout shift. She is a&o x4. Call light is within reach and patient denies any concerns.
--- NOTE | 2020-11-01 06:50 | PC.NURSE ---
DR. ALBARADO AT BEDSIDE
--- NOTE | 2020-11-01 07:18 | HMH.GSPN ---
Subjective Patient reports: feels better Progress Note: A&P Assessment and Plan for All Diagnoses:: DC home. Exam Vital signs and Labs for Last 24 Hours: Temp Pulse Resp BP Pulse Ox 98.1 F 54 L 18 122/75 97 11/01/20 04:25 11/01/20 04:25 11/01/20 04:25 11/01/20 04:25 11/01/20 04:25 I & O for Last 24 hours: Intake & Output 10/29/20 10/30/20 10/31/20 11/01/20 11:59 11:59 11:59 11:59 Intake Total 2500 / 2500 200 / 200 Output Total 450 / 450 Balance 2049 / 2049 200 / 200 Weight 235 lb - *Routine Abdominal Exam Comments: Some bruising.
--- NOTE | 2020-11-01 07:25 | P.DS_ITS ---
General - General Admission date:: 10/30/20 Discharge date: 11/01/20 HPI HPI: Patient is 25-year-old female. She states that on 10/28/2019 when she developed right lower quadrant abdominal pain. This persisted and progressed through the weekend. Became more severe and somewhat doubled her over on 10/31/2019. She therefore presented to the emergency department. Work-up included CT scan of the abdomen pelvis which revealed findings of thickened indurated inflamed appendix. Surgical consultation was obtained and arrangements were made for appendectomy. Hospital Course Hospital Course: Patient was seen and examined in emergency department. Arrangements were made for urgent surgical appendectomy. She was taken to the operating room at which time she underwent laparoscopic appendectomy. She was found to have a severely inflamed indurated thickened appendix somewhat adherent to the retroperitoneum. Please see operative dictation for complete details. She was admitted postoperatively for continuation of antibiotics. She was given a clear liquid diet. She did have some nausea in the early postoperative period this resolved with Phenergan. In the afternoon of postoperative day #1 she was advanced to a full liquid diet which she tolerated without difficulty. By postoperative day #2 in the lithopress operator she was feeling quite well and ready for discharge. Please note that she did have moderate bruising at her umbilical incision due to stretching of the fascia for delivery of the large appendix. Objective Vital signs: Temp Pulse Resp BP Pulse Ox 98.1 F 54 L 18 122/75 97 11/01/20 04:25 11/01/20 04:25 11/01/20 04:25 11/01/20 04:25 11/01/20 04:25 DS: Diagnosis - Discharge Diagnosis (1) Acute appendicitis Status: Acute Discharge Plan - Patient Discharge Instructions ACTIVITY: No heavy lifting DIET: advance to your usual diet Patient Instructions: DI for Acute Abdominal Pain - Follow up Plan Follow up with: John Puentes MD [Staff Physician] - 11/17/20 Isela Byrd [Primary Care Provider] - Disposition: Home, Self-Care Condition at discharge:: Improved Home Medications: Home Medications Medication Instructions Recorded Confirmed Type raNITIdine HCl [Zantac] 150 mg PO BID 02/08/20 10/30/20 History Fluoxetine HCl 20 mg PO DAILY 10/30/20 10/30/20 History Buprenorphine HCl/Naloxone HCl 1.5 each SL DAILY 10/31/20 10/31/20 History [Suboxone 8mg/2mg ODT] Oxycodone HCl/Acetaminophen 1 - 2 tab PO Q6H PRN #13 tab 11/01/20 Rx [Percocet 5/325mg tablet] Prescriptions/Medication Reconciliation: New Oxycodone HCl/Acetaminophen [Percocet 5/325mg tablet] 1 - 2 tab PO Q6H PRN #13 tab PRN Reason: Moderate Pain Continued raNITIdine HCl [Zantac] 150 mg PO BID Fluoxetine HCl 20 mg PO DAILY Buprenorphine HCl/Naloxone HCl [Suboxone 8mg/2mg ODT] 1.5 each SL DAILY - Problem Reconciliation Problems Reviewed?: Yes
[2020-11-01 08:25] VITALS: BP 137/88; PULSE 64; RESP 18; TEMP 36.9; O2SAT 100
[2020-11-01 09:46] LABS: Hep A Ab, IgM Negative (Negative); Hepatitis B Core Antibody IgM Negative (Negative); Hepatitis B Surface Antigen Negative (Negative); Hepatitis C Antibody <0.1 s/co ratio (0.0-0.9)
== END 2020-11-01 09:00 | disposition home or self-care (01) ==
LOC: ER 19:25 → SDC 20:13 → 2ND 20:15 → OB 20:32
PROVIDERS: Admitting Provider Surgery; Emergency Provider Emergency Medicine; PCP Nurse Practitioner Family; Visit Provider Surgery
PROC: 0DTJ4ZZ Resection of Appendix, Percutaneous Endoscopic Approach (ICD-10-PCS; CPT 44970; principal; 2020-10-30 19:45)
DX: K35.80 Unspecified acute appendicitis (principal)
CPT/HCPCS: 44970; 74177; 80048; 80053; 80074; 81001; 81025; 83690; 85025; 96365; 96375; 99284; G0378; J0131; J0330; Q9967; U0003

== ENCOUNTER 2020-12-11 16:27 | Emergency (ER) | payer BC, SELFPAY ==
[2020-12-11 16:38] VITALS: BP 109/73; PULSE 97; RESP 16; TEMP 37.1; O2SAT 98; BMI 34.9
[2020-12-11 16:39] VITALS: BMI 34.9
--- NOTE | 2020-12-11 16:46 | HMH.EDGENADL ---
ED Disposition Clinical Impression: Gastroenteritis Disposition: Home, Self-Care Condition on Discharge: Good Instructions: DI for Diarrhea and Traveler's Diarrhea -- Adult, DI for Diarrhea and Traveler's Diarrhea -- Child, DI for Nausea -- Adult, DI for Nausea -- Child Prescriptions: Ondansetron [Zofran 4mg ODT] 4 mg PO Q6 PRN #9 tab PRN Reason: Nausea Transmission Status: Pending to [employer] Referrals: Isela Byrd [Primary Care Provider] - - Critical Care Critical Care Time: No Attestation: On , the high probability of a clinically significant, sudden or life threatening deterioration of the following system(s) required my full and direct attention, intervention and personal management. The time I documented below is in addition to time spent performing reported procedures but includes the following listed in this critical care notation. Medical Decision Making - Medical Records Medical records reviewed: Yes: I reviewed the patient's medical records. - Anthony Inquiry Pt receiving controlled substance: No Vital Signs: 12/11/20 16:38 Temperature 98.7 F Temperature Source Oral Pulse Rate [Left] 97 H Respiratory Rate 16 Blood Pressure [Right Arm] 109/73 L Blood Pressure Mean [Right Arm] 85 02 Sat by Pulse Oximetry 98 - Lab Data Lab Results 12/11/20 16:35: Urine HCG, Qual Negative 12/11/20 17:15: WBC 12.3 H, RBC 4.98, Hgb 12.4, Hct 36.6 L, MCV 73.6 L, MCH 24.9 L, MCHC 33.9, RDW 16.1, Plt Count 363, MPV 7.5, Neut % (Auto) 89.9 H, Lymph % (Auto) 7.6 L, [place] % (Auto) 2.1, Eos % (Auto) 0.2, Baso % (Auto) 0.2, Neut # (Auto) 11.0 H, Lymph # (Auto) 0.9, [place] # (Auto) 0.3, Eos # (Auto) 0.0, Baso # (Auto) 0.0, Total Counted 100, Neutrophils % (Manual) 90 H, Lymphocytes % (Manual) 7 L, Monocytes % (Manual) 3, Platelet Estimate Normal, Hypochromasia 1+, Anisocytosis 1+, Microcytosis 2+ 12/11/20 17:15: Sodium 140, Potassium 3.7, Chloride 100, Carbon Dioxide 26, Anion Gap 17.7 H, BUN 9, Creatinine 0.50 L, Estimated Creat Clear 281, Estimated GFR 149, Est GFR ( Amer) 180, Glucose 102 H, Calcium 8.9, Total Bilirubin 0.8, AST 22, ALT 15, Alkaline Phosphatase 82, Total Protein 8.8 H, Albumin 5.0, Globulin 3.8 H, Albumin/Globulin Ratio 1.3 12/11/20 17:15: Lactate 1.1 Result diagrams: 12/11/20 17:15 12/11/20 17:15 Orders (Tests/Meds): ED MEDICATIONS Generic Name Dose Route Start Last Admin Trade Name Freq PRN Reason Stop Dose Admin Sodium Chloride 1,000 mls @ 999 mls/hr 12/11/20 16:45 12/11/20 16:44 Sod Chlor 0.9% 1000ml Bag IV 12/11/20 17:45 999 mls/hr .[id number] MIRA Administration Discontinued Medications Generic Name Dose Route Start Last Admin Trade Name Freq PRN Reason Stop Dose Admin Prochlorperazine Edisylate 10 mg 12/11/20 16:41 12/11/20 16:44 Prochlorperazine 10mg/2ml Vial IV 12/11/20 16:42 10 mg ONCE ONE Administration ORDERS Category Date Time Status Urinalysis and Microscopic Stat Lab 12/11/20 16:41 Ordered Medical Decision Narrative: Patient to the ED today for further evaluation of mild suprapubic abdominal pain, nausea vomiting or diarrhea. Differential diagnosis includes enteric colitis, gastroenteritis, intra-abdominal infection, postop infection. Work-up will include CBC, CMP, lactic, regnancy test, urinalysis, will administer 10 mg of IV Compazine and 1 L of IV fluids. I am not convinced patient requires CT imaging at this time, her abdominal tenderness is not severe, wounds appear clean dry and intact, and does not have peritonitis or surgical abdomen on examination. Patient reassessed, is well-appearing and improved on examination, abdominal pain is improved and resolved, I offered patient to stay in the emergency department for another liter of fluids, and she states that she would rather go home at this time, I have sent the patient Kyler to her pharmacy, instructed that she should return to the ED for worsening abdominal pain, she
[2020-12-11 17:23] LABS: Urine Pregnancy, HCG Qual. Negative (Negative)
[2020-12-11 17:26] LABS: Basophils % 0.2 % (0.1-2.0); Eosinophils % 0.2 % (0.1-12.0); Hematocrit 36.6 % (37.0-47.0); Hemoglobin 12.4 g/dL (12.2-16.2); Lymphocytes # 0.9 K/mm3 (0.7-4.5); Lymphocytes % 7.6 % (10-50); Mean Corpuscular HGB Conc 33.9 g/dL (31.8-35.4); Mean Corpuscular Hemoglobin 24.9 pg (27.0-31.2); Mean Corpuscular Volume 73.6 fl (81-99); Mean Platelet Volume 7.5 fl (7.4-10.4); Monocytes # 0.3 K/mm3 (0.1-1.0); Monocytes % 2.1 % (1.7-9.3); Neutrophils % 89.9 % (37.0-80.0); Platelet Count 363 K/mm3 (142-424); Red Blood Count 4.98 M/mm3 (4.20-5.40); Red Cell Distribution Width 16.1 % (11.5-17.5); White Blood Count 12.3 K/mm3 (4.8-10.8)
[2020-12-11 17:31] LABS: MANUAL DIFFERENTIAL MANUAL DIFFERENTIAL (MANUAL DIFF)
[2020-12-11 17:46] LABS: Lactic Acid 1.1 mmol/L (0.7-2.1)
[2020-12-11 17:53] LABS: Alanine Aminotransferase 15 U/L (12-78); Albumin/Globulin Ratio 1.3 (1.1-1.8); Alkaline Phosphatase 82 U/L (38-126); Anion Gap 17.7 mEq/L (5-15); Aspartate Amino Transferase 22 U/L (14-36); Bilirubin,Total 0.8 mg/dl (0.2-1.3); Blood Urea Nitrogen 9 mg/dl (7-17); Calcium 8.9 mg/dl (8.4-10.2); Carbon Dioxide 26 mmol/L (22.0-30.0); Creatinine Clearance Estimated 281 mL/min (50-200); Estimated Glomerular Filt Rate 149 ml/min (>60); GFR (African American) 180 ML/MIN (>60); Globulin 3.8 g/dL (1.3-3.2); Glucose 102 mg/dl (74-100); Potassium 3.7 mmoL/L (3.5-5.1); Sodium 140 mmol/L (136-145); Total Protein,Serum 8.8 g/dl (6.3-8.2)
[2020-12-11 17:55] LABS: Chloride 100 mmol/L (98-107)
[2020-12-11 18:11] LABS: Hypochromasia 1+; Lymphocytes % 7 % (10-50); Monocytes % 3 % (2-9); Neutrophils % 90 % (42-76); Total Cells Counted 100
[2020-12-11 18:12] LABS: Anisocytosis 1+; Microcytosis 2+; Platelet Estimate Normal
[2020-12-11 18:30] VITALS: BP 122/75; PULSE 90; RESP 20; TEMP 37.1; O2SAT 97
== END 2020-12-11 18:31 | disposition home or self-care (01) ==
PROVIDERS: Emergency Provider Student in an Organized Health Care Education/Training Program; PCP Nurse Practitioner Family
DX: K52.9 Noninfective gastroenteritis and colitis, unspecified (principal); F41.8 Other specified anxiety disorders
CPT/HCPCS: 80053; 81025; 83605; 85007; 85025; 96365; 96375; 99283

== ENCOUNTER 2021-01-03 16:29 | Emergency (ER) | payer BC, SELFPAY ==
[2021-01-03 17:04] VITALS: BP 112/69; PULSE 98; RESP 22; TEMP 37.2; O2SAT 98; BMI 34.4
--- NOTE | 2021-01-03 17:12 | HMH.EDUTC ---
[facility] [place] Clinical Impression: Viral syndrome, Encounter for laboratory testing for COVID-19 virus Disposition: Home, Self-Care Condition on Discharge: Good Instructions: DI for Viral Syndrome, DI for COVID-19 (Suspected or Confirmed ), Coronavirus Disease 2019, Preventing the Spread of Coronavirus Discharge Instructions Additional Instructions: *Monitor Temp, Over the counter Motrin or Tylenol as directed/as needed Tylenol every 4 hours and Motrin every 6 hours (as long as your family doctor has told you that you can take it) for fever or pain. and straight to ER if unable to lower temp less than 101.0 after medication given *Warm salt water gargles may help to soothe the throat *Throat Lozenges *Warm fluids like tea with honey may help to soothe the throat *Sleep elevated *Humidifier/Vaporizer *Flonase 2 sprays in each nostril daily but be aware that it may take 2-3 days before you notice improvement Follow up IMMEDIATELY for new or worsening symptoms or no Noticeable improvement over the next 48-72 hours. 911 for difficulty breathing or swallowing You were tested for today for COVID19 your test result should be back in the next 24-48 hours, you may call to the [facility] to see if your test results are back in the next 48 hours [phone] [facility] hours are 9am-9pm You was given a handout with instructions for Self Quarantine and Self isolation for while you wait on test results and what to do if they are positive If you are positive the Health Dept will be contacting you also Prescriptions: guaiFENesin [Mucinex 600mg tablet] 1 - 2 tab PO Q12HP PRN #20 tab.er.12h PRN Reason: Congestion Transmission Status: Pending to [facility] Referrals: Isela Byrd [Primary Care Provider] - As needed Forms: Work/School Release Time of Disposition: 17:20 Medical Decision Making - Anthony Inquiry Pt receiving controlled substance: No Anthony was queried for this patient: No Vital Signs: 01/03/21 17:04 Temperature 99 F Temperature Source Oral Pulse Rate [Left] 98 H Respiratory Rate 22 Blood Pressure [Right Arm] 112/69 Blood Pressure Mean [Right Arm] 83 02 Sat by Pulse Oximetry 98 Orders (Tests/Meds): ORDERS Category Date Time Status Covid-19 Nasal PCR ([facility]) Routine Lab 01/03/21 16:56 Ordered [facility] [place] HPI - General Stated complaint: Covid test, with symptoms Time Seen by Provider: 01/03/21 17:12 Mode of Arrival: Ambulatory Source of Information: Patient Limitations: No Limitations Description of Symptoms (Recalled from Triage Doc. by RN): pt c/o MOHR, body aches, n/v, loss of taste/smell, fever, and soa since sat. HEENT Symptoms (Recalled from RN notes): Yes (MOHR and loss of smell/taste) Resp Symptoms (Recalled from RN notes): Yes (soa) Skin Symptoms (Recalled from RN notes): No MS Symptoms (Recalled from RN notes): No Functional Status (Recalled from RN notes): na - History of Present Illness Provider Complaint: Patient states she recently was on vacation State that when she got back she thought she may have a head cold States that she then started having nausea, upset stomach, diarrhea, sore throat, vomiting and a couple days ago loss her sense of taste and smell State that her nose is congested too and makes her feel SOA at times - Related Data Home Medications Medication Instructions Recorded Confirmed Buprenorphine HCl/Naloxone HCl 1.5 each SL DAILY 10/31/20 11/17/20 [Suboxone 8mg/2mg ODT] Previous Rx's Medication Instructions Recorded Ondansetron [Zofran 4mg ODT] 4 mg PO Q6 PRN #9 tab 12/11/20 guaiFENesin [Mucinex 600mg tablet] 1 - 2 tab PO Q12HP PRN #20 01/03/21 tab.er.12h Allergies Allergy/AdvReac Type Severity Reaction Status Date / Time loratadine [From CLARITIN] Allergy Intermediate I-RASH Verified 01/03/21 17:09 ondansetron Allergy Intermediate I-RASH Verified 01/03/21 17:09 [From ZOFRAN ( HYDROCHLORIDE)] Penicillins [PENICILLINS] Allergy Interme
[2021-01-03 17:32] VITALS: BP 115/75; PULSE 96; RESP 20; TEMP 37.2
--- NOTE | 2021-01-04 16:07 | PC.NURSE ---
PT NOTIFIED OF POSITIVE COVID TEST RESULTS
--- NOTE | 2021-01-05 17:44 | PC.NURSE ---
attempted to call pt to schedule for infusion, no answer.
== END 2021-01-03 17:36 | disposition home or self-care (01) ==
PROVIDERS: Emergency Provider Nurse Practitioner; PCP Nurse Practitioner Family
DX: U07.1 COVID-19 (principal); F41.8 Other specified anxiety disorders; Z88.0 Allergy status to penicillin
CPT/HCPCS: 99202; G0463; U0003

== ENCOUNTER 2021-01-06 09:23 | Outpatient (CLI) | payer BC, SELFPAY ==
[2021-01-06 10:15] VITALS: BP 105/59; PULSE 69; RESP 16; TEMP 36.4; O2SAT 97
== END 2021-01-06 11:45 | disposition home or self-care (01) ==
PROVIDERS: PCP Nurse Practitioner Family; Visit Provider Nurse Practitioner Family
DX: U07.1 COVID-19 (principal)
CPT/HCPCS: 96365

== ENCOUNTER 2021-02-22 10:38 | Emergency (ER) | payer BC, SELFPAY ==
[2021-02-22 10:41] VITALS: BP 119/74; PULSE 87; RESP 18; TEMP 36.7; O2SAT 96; BMI 37.5
--- NOTE | 2021-02-22 11:29 | CT_ITS ---
PROCEDURE: CT ABDOMEN PELVIS W CON CLINICAL INDICATION: pain COMPARISON: CT CT ABDOMEN PELVIS W CON from 10/30/2020 TECHNIQUE: IV Contrast: 75ML Isovue 370 Oral Contrast None Axial images obtained with sagittal and coronal reformats. All CT scans at the facility use one or more dose reduction, viz: automated exposure control, ma/kV adjustment per patient size (including targeted exams where dose is matched to indication, i.e. head), or iterative reconstruction technique. FINDINGS: LOWER THORAX: Minimal atelectatic change right lung base. ABDOMEN & PELVIS: Prior cholecystectomy. Mild fatty liver. There is splenomegaly at 17 cm. No focal splenic lesion evident. The adrenal glands and pancreas have an unremarkable appearance. Interval appendectomy. No intestinal obstruction or free air. There is a mild amount of retained colonic feces. No abnormal fluid collections. No abscess. Nonspecific nonobstructive bowel gas pattern. No acute bony findings. Minimal lumbar curvature convex right. IMPRESSION: No acute finding Splenomegaly Dictated by: John Logan MD 02/22/2021 12:57 John Logan MD in [place] 02/22/2021 12:57
--- NOTE | 2021-02-22 11:30 | XR_ITS ---
PROCEDURE: XR FOOT LT 2V CLINICAL INDICATION: injury COMPARISON: CR FTR3 FOOT-RT-3 VIEWS from 08/11/2015 FINDINGS: No fracture or dislocation. No lytic or blastic change. There is normal mineralization. The joint spaces are well-preserved. No significant degenerative/arthritic changes. No erosive changes evident. Other findings:None. IMPRESSION: No acute findings. Dictated by: John Logan MD 02/22/2021 14:06 Jonh Logan MD in [place] 02/22/2021 14:06
--- NOTE | 2021-02-22 11:34 | HMH.EDGENADL ---
ED Disposition Clinical Impression: Gastroenteritis Menorrhagia Qualifiers: Menorrhagia type: with regular cycle Qualified Code(s): N92.0 - Excessive and frequent menstruation with regular cycle Disposition: Home, Self-Care Condition on Discharge: Good Instructions: DI for Viral Gastroenteritis -- Adult Additional Instructions: Phenergan as needed for nausea and vomiting. [id number] Imodium as needed for diarrhea. Follow-up with your primary care provider if heavy vaginal bleeding continues. Additional instructions for VOMITING/DIARRHEA: See your physician as soon as possible for further evaluation. Return immediately if severe abdominal pain, uncontrollable vomiting, shortness of breath, fever, vomiting of blood or abdominal distention. Prescriptions: Promethazine HCl [Phenergan 25mg tab] 25 mg PO Q6HP PRN #10 tab PRN Reason: Nausea And Vomiting Transmission Status: Received by [facility] Referrals: Isela Byrd [Primary Care Provider] - Forms: Work/School Release - Critical Care Critical Care Time: No Attestation: On , the high probability of a clinically significant, sudden or life threatening deterioration of the following system(s) required my full and direct attention, intervention and personal management. The time I documented below is in addition to time spent performing reported procedures but includes the following listed in this critical care notation. Medical Decision Making - Anthony Inquiry Pt receiving controlled substance: No Vital Signs: 02/22/21 10:41 02/22/21 12:21 02/22/21 14:42 Temperature 98.1 F Temperature Source Oral Pulse Rate 85 82 Pulse Rate [Left Radial] 87 Respiratory Rate 18 15 18 Blood Pressure 127/78 106/72 L Blood Pressure [Right Arm] 119/74 Blood Pressure Mean [Right Arm] 89 Blood Pressure Source [Right Arm] Automatic Cuff Blood Pressure Position [Right Arm] Sitting 02 Sat by Pulse Oximetry 96 97 97 Oxygen Delivery Method Room Air - Lab Data Lab Results 02/22/21 11:48: WBC 4.6 L, RBC 4.75, Hgb 11.6 L, Hct 36.6 L, MCV 76.9 L, MCH 24.3 L, MCHC 31.6 L, RDW 16.0, Plt Count 287, MPV 8.7, Neut % (Auto) 83.3 H, Lymph % (Auto) 10.5, [place] % (Auto) 4.5, Eos % (Auto) 0.3, Baso % (Auto) 1.4, Neut # (Auto) 3.9, Lymph # (Auto) 0.5 L, [place] # (Auto) 0.2, Eos # (Auto) 0.0, Baso # (Auto) 0.1 02/22/21 11:48: Sodium 138, Potassium 3.9, Chloride 103, Carbon Dioxide 26, Anion Gap 12.9, BUN 6 L, Creatinine 0.40 L, Estimated Creat Clear 366 H, Estimated GFR 193, Est GFR ( Amer) 233, Glucose 108 H, Calcium 8.5, Total Bilirubin 0.5, AST 38 H, ALT 23, Alkaline Phosphatase 66, Total Protein 8.1, Albumin 4.5, Globulin 3.6 H, Albumin/Globulin Ratio 1.3, Amylase 63 02/22/21 11:48: Serum HCG, Qual Negative 02/22/21 11:48: Lipase 59 02/22/21 15:18: Urine Color Yellow, Urine Appearance Clear, Urine pH 5.5, Ur Specific [place] 1.010, Urine Protein Negative, Urine Glucose (UA) Negative, Urine Ketones 2+, Urine Blood 3+, Urine Nitrate Negative, Urine Bilirubin Negative, Urine Urobilinogen 2.0, Ur Leukocyte Esterase Negative, Urine RBC 10-20, Urine WBC None, Ur Squamous Epith Cells Occasional, Urine Bacteria 1+ Result diagrams: 02/22/21 11:48 02/22/21 11:48 Orders (Tests/Meds): ED MEDICATIONS Discontinued Medications Generic Name Dose Route Start Last Admin Trade Name Josseq PRN Reason Stop Dose Admin Iopamidol 75 ml 02/22/21 12:34 02/22/21 12:35 Iopamidol-370 (76%);100ml Bottle IV 02/22/21 12:35 75 ml ONCE ONE Administration Ketorolac Tromethamine 30 mg 02/22/21 15:01 Ketorolac 30mg/Ml Vial IV 02/22/21 15:02 ONCE ONE Promethazine HCl 12.5 mg 02/22/21 11:43 02/22/21 12:09 Promethazine Hcl 25mg/Ml 1ml Vial IV 02/22/21 11:44 12.5 mg ONCE ONE Administration Sodium Chloride 1,000 ml 02/22/21 11:42 02/22/21 12:07 Sodium Chloride 0.9% 1000ml Bag IV 02/22/21 11:43 1,000 ml BOLUS ONE Administration S
[2021-02-22 12:06] LABS: Basophils # 0.1 K/mm3 (0-0.2); Basophils % 1.4 % (0.1-2.0); Eosinophils % 0.3 % (0.1-12.0); Hematocrit 36.6 % (37.0-47.0); Hemoglobin 11.6 g/dL (12.2-16.2); Lymphocytes # 0.5 K/mm3 (0.7-4.5); Lymphocytes % 10.5 % (10-50); Mean Corpuscular HGB Conc 31.6 g/dL (31.8-35.4); Mean Corpuscular Hemoglobin 24.3 pg (27.0-31.2); Mean Corpuscular Volume 76.9 fl (81-99); Mean Platelet Volume 8.7 fl (7.4-10.4); Monocytes # 0.2 K/mm3 (0.1-1.0); Monocytes % 4.5 % (1.7-9.3); Neutrophils # 3.9 K/mm3 (1.8-7.8); Neutrophils % 83.3 % (37.0-80.0); Platelet Count 287 K/mm3 (142-424); Red Blood Count 4.75 M/mm3 (4.20-5.40); White Blood Count 4.6 K/mm3 (4.8-10.8)
[2021-02-22 12:09] LABS: Alanine Aminotransferase 23 U/L (12-78); Albumin Level 4.5 g/dl (3.5-5.0); Albumin/Globulin Ratio 1.3 (1.1-1.8); Alkaline Phosphatase 66 U/L (38-126); Amylase 63 U/L (30-110); Anion Gap 12.9 mEq/L (5-15); Aspartate Amino Transferase 38 U/L (14-36); Bilirubin,Total 0.5 mg/dl (0.2-1.3); Blood Urea Nitrogen 6 mg/dl (7-17); Calcium 8.5 mg/dl (8.4-10.2); Carbon Dioxide 26 mmol/L (22.0-30.0); Chloride 103 mmol/L (98-107); Creatinine Clearance Estimated 366 mL/min (50-200); Estimated Glomerular Filt Rate 193 ml/min (>60); GFR (African American) 233 ML/MIN (>60); Globulin 3.6 g/dL (1.3-3.2); Glucose 108 mg/dl (74-100); Potassium 3.9 mmoL/L (3.5-5.1); Sodium 138 mmol/L (136-145); Total Protein,Serum 8.1 g/dl (6.3-8.2)
[2021-02-22 12:10] LABS: Lipase 59 U/L (23-300)
[2021-02-22 12:18] LABS: HCG Qualitative, Serum Negative (Negative)
[2021-02-22 12:21] VITALS: BP 127/78; PULSE 85; RESP 15; O2SAT 97
[2021-02-22 14:42] VITALS: BP 106/72; PULSE 82; RESP 18; O2SAT 97
[2021-02-22 15:22] LABS: Microscopic, Urine URINE MICROSCOPIC (MICROSCOPIC)
[2021-02-22 15:26] LABS: Appearance,Urine CLEAR (Clear); Bilirubin,Urine Negative (Negative); Blood, Urine 3+ (Negative); Color,Urine YELLOW (Yellow); Glucose,Urine (UA) Negative (Negative); Ketones,Urine 2+ (Negative); Leukocyte Esterase,Urine Negative (Negative); Nitrate,Urine Negative (Negative); PH,Urine 5.5 (5.0-8.5); Protein,Urine Negative (Negative)
[2021-02-22 15:42] LABS: Bacteria,Urine 1+ /lpf; Squamous Epithelial Cell,Urine Occasional #/hpf (0-5)
[2021-02-22 16:10] VITALS: BP 109/60; PULSE 66; RESP 16; TEMP 36.8; O2SAT 98
== END 2021-02-22 16:13 | disposition home or self-care (01) ==
PROVIDERS: Emergency Provider Emergency Medicine; PCP Nurse Practitioner Family
DX: K52.9 Noninfective gastroenteritis and colitis, unspecified; N92.0 Excessive and frequent menstruation with regular cycle; S99.922A Unspecified injury of left foot, initial encounter; W22.8XXA Striking against or struck by other objects, initial encounter; F11.20 Opioid dependence, uncomplicated; Z88.0 Allergy status to penicillin; Z88.6 Allergy status to analgesic agent; Z88.8 Allergy status to other drugs, medicaments and biological substances; F41.9 Anxiety disorder, unspecified; F32.9 Major depressive disorder, single episode, unspecified
CPT/HCPCS: 73620; 74177; 80053; 81001; 82150; 83690; 84703; 85025; 96374; 96375; 99283; Q9967

== ENCOUNTER 2021-04-16 21:53 | Emergency (ER) | payer BC, SELFPAY ==
[2021-04-16 21:54] VITALS: BP 127/80; PULSE 106; RESP 18; TEMP 37.4; O2SAT 100; BMI 35.4
[2021-04-16 22:42] LABS: Strep Scrn Group A (Rapid) Negative (Negative)
--- NOTE | 2021-04-16 22:54 | HMH.EDURI ---
ED Disposition Clinical Impression: Pharyngitis Qualifiers: Pharyngitis/tonsillitis etiology: unspecified etiology Qualified Code(s): J02.9 - Acute pharyngitis, unspecified Disposition: Home, Self-Care Condition on Discharge: Good Instructions: DI for Pharyngitis/Tonsillopharyngitis -- Adult Additional Instructions: use meds and see pcp for follow up Prescriptions: Minocycline HCl [Minocycline HCl 100mg Tab*] 100 mg PO BID #14 tab Transmission Status: Pending to [facility] Referrals: Isela Byrd [Primary Care Provider] - - Critical Care Critical Care Time: No Attestation: On 04/16/21, the high probability of a clinically significant, sudden or life threatening deterioration of the following system(s) required my full and direct attention, intervention and personal management. The time I documented below is in addition to time spent performing reported procedures but includes the following listed in this critical care notation. Medical Decision Making - Medical Records Medical records reviewed: Yes: I reviewed the patient's medical records. - Anthony Inquiry Pt receiving controlled substance: No Vital Signs: 04/16/21 21:54 Temperature 99.4 F Temperature Source Oral Pulse Rate [Right Radial] 106 H Respiratory Rate 18 Blood Pressure [Right Arm] 127/80 Blood Pressure Mean [Right Arm] 95 Blood Pressure Source [Right Arm] Automatic Cuff Blood Pressure Position [Right Arm] Sitting 02 Sat by Pulse Oximetry 100 Oxygen Delivery Method Room Air - Lab Data Lab results reviewed: Yes: I reviewed the patient's lab results. Lab Results 04/16/21 22:10: Group A Strep Rapid Negative 04/16/21 23:08: WBC 6.4, RBC 4.35, Hgb 10.7 L, Hct 32.5 L, MCV 74.6 L, MCH 24.5 L, MCHC 32.9, RDW 17.0, Plt Count 334, MPV 8.5, Neut % (Auto) 77.1, Lymph % (Auto) 16.9, [place] % (Auto) 5.3, Eos % (Auto) 0.1, Baso % (Auto) 0.6, Neut # (Auto) 4.9, Lymph # (Auto) 1.1, [place] # (Auto) 0.3, Eos # (Auto) 0.0, Baso # (Auto) 0.0 04/16/21 23:08: Sodium 140, Potassium 3.4 L, Chloride 101, Carbon Dioxide 28, Anion Gap 14.4, BUN 8, Creatinine 0.60, Estimated Creat Clear 244, Estimated GFR 121, Est GFR ( Amer) 146, Glucose 100, Calcium 9.0, Total Bilirubin 0.2, AST 26, ALT 14, Alkaline Phosphatase 49, C-Reactive Protein 36.6 H, Total Protein 8.0, Albumin 4.7, Globulin 3.3 H, Albumin/Globulin Ratio 1.4 04/16/21 23:08: Monoscreen Negative Result diagrams: 04/16/21 23:08 04/16/21 23:08 Orders (Tests/Meds): ED MEDICATIONS Generic Name Dose Route Start Last Admin Trade Name Freq PRN Reason Stop Dose Admin Sodium Chloride 1,000 mls @ 999 mls/hr 04/16/21 23:00 04/16/21 22:59 Sod Chlor 0.9% 1000ml Bag IV 04/17/21 00:00 999 mls/hr .Q1H1M MIRA Administration Ceftriaxone Sodium 1 gm/ 50 mls @ 100 mls/hr 04/16/21 23:30 04/16/21 23:22 Sodium Chloride IV 04/30/21 23:29 100 mls/hr Q24H MIRA Administration Discontinued Medications Generic Name Dose Route Start Last Admin Trade Name Freq PRN Reason Stop Dose Admin Ketorolac Tromethamine 30 mg 04/16/21 22:53 04/16/21 22:59 Ketorolac 30mg/Ml Vial IV 04/16/21 22:54 30 mg ONCE ONE Administration Methylprednisolone Sodium Succinate 125 mg 04/16/21 22:53 04/16/21 22:59 Methylprednisolone Sod Succ 125mg Vial IV 04/16/21 22:54 125 mg ONCE ONE Administration ORDERS Category Date Time Status C-Reactive Protein Stat Lab 04/16/21 23:08 Results Complete Blood Count Auto Diff Stat Lab 04/16/21 23:08 Results Comprehensive Metabolic Panel Stat Lab 04/16/21 23:08 Results Erythrocyte Sedimentation Rate Stat Lab 04/16/21 23:08 Results Procalcitonin Stat Lab 04/16/21 23:08 Results Strep Screen Confirmation Stat Micro 04/16/21 22:10 Received Medical Decision Narrative: fluids and gargle and new toothbrush - see pcp and use meds URI/Sore Throat HPI - General Chief Complaint: Upper Respiratory Infection Stated Complaint: sore throat, Bl
[2021-04-16 23:18] LABS: Basophils % 0.6 % (0.1-2.0); Eosinophils % 0.1 % (0.1-12.0); Hematocrit 32.5 % (37.0-47.0); Hemoglobin 10.7 g/dL (12.2-16.2); Lymphocytes # 1.1 K/mm3 (0.7-4.5); Lymphocytes % 16.9 % (10-50); Mean Corpuscular HGB Conc 32.9 g/dL (31.8-35.4); Mean Corpuscular Hemoglobin 24.5 pg (27.0-31.2); Mean Corpuscular Volume 74.6 fl (81-99); Mean Platelet Volume 8.5 fl (7.4-10.4); Monocytes # 0.3 K/mm3 (0.1-1.0); Monocytes % 5.3 % (1.7-9.3); Neutrophils # 4.9 K/mm3 (1.8-7.8); Neutrophils % 77.1 % (37.0-80.0); Platelet Count 334 K/mm3 (142-424); Red Blood Count 4.35 M/mm3 (4.20-5.40); White Blood Count 6.4 K/mm3 (4.8-10.8)
[2021-04-16 23:20] LABS: Monoscreen (Rapid) Negative (Negative)
[2021-04-16 23:24] LABS: Alanine Aminotransferase 14 U/L (12-78); Albumin Level 4.7 g/dl (3.5-5.0); Albumin/Globulin Ratio 1.4 (1.1-1.8); Alkaline Phosphatase 49 U/L (38-126); Anion Gap 14.4 mEq/L (5-15); Aspartate Amino Transferase 26 U/L (14-36); Bilirubin,Total 0.2 mg/dl (0.2-1.3); Blood Urea Nitrogen 8 mg/dl (7-17); Carbon Dioxide 28 mmol/L (22.0-30.0); Chloride 101 mmol/L (98-107); Creatinine Clearance Estimated 244 mL/min (50-200); Estimated Glomerular Filt Rate 121 ml/min (>60); GFR (African American) 146 ML/MIN (>60); Globulin 3.3 g/dL (1.3-3.2); Glucose 100 mg/dl (74-100); Potassium 3.4 mmoL/L (3.5-5.1); Sodium 140 mmol/L (136-145)
[2021-04-16 23:29] LABS: C-Reactive Protein 36.6 mg/L (0-4)
[2021-04-16 23:43] LABS: Procalcitonin 0.091 ng/mL (0.0-2.0)
[2021-04-16 23:44] LABS: Erythrocyte Sedimentation Rate 46 mm/hr (0-20)
[2021-04-17 00:02] VITALS: BP 124/74; PULSE 89; RESP 18; TEMP 37.1; O2SAT 100
== END 2021-04-17 00:04 | disposition home or self-care (01) ==
PROVIDERS: Emergency Provider Emergency Medicine; PCP Nurse Practitioner Family
DX: J02.9 Acute pharyngitis, unspecified (principal); F41.8 Other specified anxiety disorders; B37.0 Candidal stomatitis
CPT/HCPCS: 80053; 84145; 85025; 85651; 86140; 86318; 87430; 96365; 96375; 99283

== ENCOUNTER 2021-08-20 12:34 | Emergency (ER) | payer BC, SELFPAY ==
[2021-08-20 12:45] VITALS: BP 105/65; PULSE 63; RESP 17; TEMP 36.8; O2SAT 93; BMI 38.0
--- NOTE | 2021-08-20 12:47 | HMH.EDGENADL ---
ED Disposition Clinical Impression: Tonsillitis, Pharyngitis Disposition: Home, Self-Care Condition on Discharge: Good Instructions: DI for Pharyngitis/Tonsillopharyngitis -- Adult Additional Instructions: Please follow-up with your primary care physician in 2 to 3 days for further management. Please utilize salt water rinses daily, [id number] chloraseptic rinses. Can also try honey tea to soothe the back of throat. Please return back to the emergency department for any concerning symptoms such as inability to eat and drink, symptoms that do not improve, difficulty breathing, chest pain or any other concerning symptoms. Referrals: Isela Byrd [Primary Care Provider] - - Critical Care Critical Care Time: No Attestation: On 08/20/21, the high probability of a clinically significant, sudden or life threatening deterioration of the following system(s) required my full and direct attention, intervention and personal management. The time I documented below is in addition to time spent performing reported procedures but includes the following listed in this critical care notation. Medical Decision Making - Medical Records Medical records reviewed: Yes: I reviewed the patient's medical records. - Anthony Inquiry Pt receiving controlled substance: No Vital Signs: 08/20/21 12:45 08/20/21 14:20 Temperature 98.3 F 98.3 F Temperature Source Oral Pulse Rate 61 Pulse Rate [Left Radial] 63 Respiratory Rate 17 18 Blood Pressure 110/70 Blood Pressure [Right Arm] 105/65 L Blood Pressure Mean [Right Arm] 78 02 Sat by Pulse Oximetry 93 L Oxygen Delivery Method Room Air Room Air - Lab Data Lab results reviewed: Yes: I reviewed the patient's lab results. Lab Results 08/20/21 13:02: Group A Strep Rapid Negative 08/20/21 13:22: Monoscreen Negative Orders (Tests/Meds): ED MEDICATIONS Discontinued Medications Generic Name Dose Route Start Last Admin Trade Name Freq PRN Reason Stop Dose Admin Acetaminophen 1,000 mg 08/20/21 12:43 08/20/21 12:56 Acetaminophen 500mg Tab PO 08/20/21 12:44 1,000 mg ONCE ONE Administration Ibuprofen 600 mg 08/20/21 12:42 08/20/21 13:02 Ibuprofen 600 Mg Tablet PO 08/20/21 12:43 600 mg ONCE ONE Administration Promethazine HCl 12.5 mg 08/20/21 12:50 08/20/21 12:56 Promethazine Hcl 12.5mg Tablet PO 08/20/21 12:51 12.5 mg ONCE ONE Administration Tetracycl/Hydrocort/Nystatin/Diphen 15 ml 08/20/21 13:00 08/20/21 12:56 Magic Mouthwash 240ml Bottle PO 09/19/21 12:59 15 ml QID MIRA Administration ORDERS Category Date Time Status Strep Screen Confirmation Stat Micro 08/20/21 13:02 Received Medical Decision Narrative: Mrs. Maria is a 25-year-old female with no significant past medical history who presents to the emergency department with sore throat which started a few days prior. Patient is afebrile and hemodynamically stable on arrival. Physical exam patient has bilateral tonsillar exudate, uvula midline. Full range of motion of the neck. No dental caries noted. Normal TM. No LAD. Otherwise benign exam. Differentials to consider but not limited to include: tonsillitis/pharyngitis 2/2 to mono, strep, viral pharyngitis. No concern for retropharyngeal abscess or tonsillar abscess given physical exam will not investigate further. Patient is given magic mouth wash, tylenol and zofran for symptomatic relief. Upon reassessment patient reports symptoms have gravely improved. Patient is po challneged successfully and informed to fu w/ her pcp in 2-3 d. Patient instructed to use warm salt rinses daily, honey tea and over the counter chloraseptic washes to help soothe her throat. Patient understands plan and is discharged in stable condition. General Adult HPI - General Stated complaint: chills, sore throat, vomiting Time Seen by Provider: 08/20/21 12:45 Mode of Arrival: Ambulatory Source of Information: Patient Limitations: No Li
[2021-08-20 13:36] LABS: Strep Scrn Group A (Rapid) Negative (Negative)
[2021-08-20 13:43] LABS: Monoscreen (Rapid) Negative (Negative)
[2021-08-20 14:20] VITALS: BP 110/70; PULSE 61; RESP 18; TEMP 36.8; O2SAT 96
== END 2021-08-20 14:22 | disposition home or self-care (01) ==
PROVIDERS: Emergency Provider Student in an Organized Health Care Education/Training Program; PCP Nurse Practitioner Family
DX: B00.2 Herpesviral gingivostomatitis and pharyngotonsillitis (principal); M79.10 Myalgia, unspecified site; R11.10 Vomiting, unspecified; F32.A Depression, unspecified; F41.9 Anxiety disorder, unspecified; Z79.899 Other long term (current) drug therapy; Z88.0 Allergy status to penicillin; Z88.5 Allergy status to narcotic agent; Z88.6 Allergy status to analgesic agent; Z88.8 Allergy status to other drugs, medicaments and biological substances
CPT/HCPCS: 86318; 87430; 99283

== ENCOUNTER 2021-09-26 11:07 | Emergency (ER) | payer BC, SELFPAY ==
[2021-09-26 11:08] VITALS: BP 103/75; PULSE 110; RESP 18; TEMP 37.6; O2SAT 99; BMI 38.0
--- NOTE | 2021-09-26 11:21 | HMH.EDGENADL ---
ED Disposition Clinical Impression: COVID-19 virus infection Disposition: Home, Self-Care Condition on Discharge: Fair Additional Instructions: Rest, drink plenty of fluids. Tylenol or Ibuprofen for fever and/or aches and pains. Monitor your symptoms. IF YOU HAVE AN EMERGENCY WARNING SIGN (INCLUDING TROUBLE BREATHING), SEEK EMERGENCY MEDICAL CARE IMMEDIATELY. COVID-19 Isolation: People with COVID-19 should isolate for 5 days. Then if they are asymptomatic (no symptoms) or their symptoms are resolving (without fever for 24 hours), follow that by 5 days of wearing a mask when around others to minimize the risk of infecting people you encounter. If you test positive for COVID-19 and never develop symptoms, day 0 is the day of your positive viral test (based on the date you were tested) and day 1 is the first full day after your positive test. If you develop symptoms after testing positive, your 5-day isolation period must start over. Day 0 is your first day of symptoms. Day 1 is the first full day after your symptoms developed. What to do: Stay in a separate room from other household members, if possible. Use a separate bathroom, if possible. Avoid contact with other members of the household and pets. Don?t share personal household items, like cups, towels, and utensils. Wear a mask when around other people if able. Prescriptions: Nirmatrelvir/Ritonavir [Paxlovid Co-Pack (Eua)] 1 tab PO BID #10 tab Prescription Printed Referrals: Isela Byrd [Primary Care Provider] - - Critical Care Critical Care Time: No Attestation: On , the high probability of a clinically significant, sudden or life threatening deterioration of the following system(s) required my full and direct attention, intervention and personal management. The time I documented below is in addition to time spent performing reported procedures but includes the following listed in this critical care notation. Medical Decision Making - Medical Records Medical records reviewed: Yes: I reviewed the patient's medical records. MR Comment: Reviewed emergency department visit 06/11/2020 for migraine. Physicians history at that time states patient reported frequent migraines. Symptoms at that time similar with headache and ringing in ears. - Anthony Inquiry Pt receiving controlled substance: No Anthony was queried for this patient: Yes Vital Signs: 09/26/21 11:08 09/26/21 13:30 Temperature 99.7 F H 99.0 F Temperature Source Oral Pulse Rate 98 H Pulse Rate [Right Radial] 110 H Respiratory Rate 18 19 Blood Pressure 105/79 L Blood Pressure [Right Arm] 103/75 L Blood Pressure Mean [Right Arm] 84 Blood Pressure Source [Right Arm] Automatic Cuff Blood Pressure Position [Right Arm] Sitting 02 Sat by Pulse Oximetry 99 Oxygen Delivery Method Room Air - Lab Data Lab Results 09/26/21 11:27: SARS-CoV-2 (PCR) Detected A, Influenza A Untype (PCR) Not detected, Influenza Type B (PCR) Not detected 09/26/21 11:50: WBC 4.1 L, RBC 4.61, Hgb 11.0 L, Hct 33.7 L, MCV 73.1 L, MCH 23.9 L, MCHC 32.7, RDW 16.8, Plt Count 326, MPV 8.8, Neut % (Auto) 84.8 H, Lymph % (Auto) 9.3 L, [place] % (Auto) 4.9, Eos % (Auto) 0.3, Baso % (Auto) 0.7, Neut # (Auto) 3.4, Lymph # (Auto) 0.4 L, [place] # (Auto) 0.2, Eos # (Auto) 0.0, Baso # (Auto) 0.0 09/26/21 11:50: Sodium 135 L, Potassium 3.7, Chloride 98, Carbon Dioxide 29, Anion Gap 11.7, BUN 6 L, Creatinine 0.60, Estimated Creat Clear 252, Estimated GFR 120, Est GFR ( Amer) 145, Glucose 111 H, Calcium 9.3, Total Bilirubin 0.1 L, AST 31, ALT 24, Alkaline Phosphatase 68, C-Reactive Protein 26.0 H, Total Protein 8.4 H, Albumin 4.7, Globulin 3.7 H, Albumin/Globulin Ratio 1.3 09/26/21 11:50: ESR 35 H 09/26/21 11:50: Procalcitonin 0.085 09/26/21 11:50: Lactate 0.8 09/26/21 12:15: Urine Color [place], Urine Appearance Sl cloudy, Urine pH 7.5, Ur Specific [place] 1.010, Urine Protein Negative, Urine Glucose (UA) Negative, Urine Ketones Nega
--- NOTE | 2021-09-26 11:27 | CT_ITS ---
FINAL REPORT CLINICAL HISTORY: headache FINDINGS: Axial images of the head were obtained without contrast. Coronal reformatted images were also obtained.This study was performed with techniques to keep radiation doses as low as reasonably achievable (ALARA). Individualized dose reduction techniques using automated exposure control or adjustment of mA and/or kV according to the patient's size were employed. There is no evidence of intracranial hemorrhage or mass. The ventricular size is within normal limits. There is no evidence of shift of the midline structures. No abnormal extra axial fluid collection is identified. No skull abnormality is seen on the bone window images. IMPRESSION: No acute intracranial abnormality. Reviewed, Interpreted and Dictated by John Hernández III, MD Transcribed by Timbo Noyola Authenticated by John Hernández III, MD on 09/26/2021 12:04:52 PM [facility]
--- NOTE | 2021-09-26 11:28 | XR_ITS ---
FINAL REPORT CLINICAL HISTORY: fever, cough COMPARISON: June 20, 2016 FINDINGS: Two views of the chest were obtained. The heart size and pulmonary vascularity are within normal limits. The mediastinum is normal. No acute pulmonary abnormality is identified. There is no pneumothorax. The bony thorax is intact. IMPRESSION: No active cardiopulmonary disease. Reviewed, Interpreted and Dictated by John Hernández III, MD Transcribed by Timbo Noyola Authenticated by John Hernández III, MD on 09/26/2021 12:04:56 PM [facility]
--- NOTE | 2021-09-26 11:36 | PC.NURSE ---
Pt to rad
[2021-09-26 12:08] LABS: Basophils % 0.7 % (0.1-2.0); Eosinophils % 0.3 % (0.1-12.0); Hematocrit 33.7 % (37.0-47.0); Lymphocytes # 0.4 K/mm3 (0.7-4.5); Lymphocytes % 9.3 % (10-50); Mean Corpuscular HGB Conc 32.7 g/dL (31.8-35.4); Mean Corpuscular Hemoglobin 23.9 pg (27.0-31.2); Mean Corpuscular Volume 73.1 fl (81-99); Mean Platelet Volume 8.8 fl (7.4-10.4); Monocytes # 0.2 K/mm3 (0.1-1.0); Monocytes % 4.9 % (1.7-9.3); Neutrophils # 3.4 K/mm3 (1.8-7.8); Neutrophils % 84.8 % (37.0-80.0); Platelet Count 326 K/mm3 (142-424); Red Blood Count 4.61 M/mm3 (4.20-5.40); Red Cell Distribution Width 16.8 % (11.5-17.5); White Blood Count 4.1 K/mm3 (4.8-10.8)
[2021-09-26 12:09] LABS: Influenza A, PCR Not Detected (NotDetected); Influenza B, PCR Not Detected (NotDetected)
[2021-09-26 12:17] LABS: Alanine Aminotransferase 24 U/L (12-78); Albumin Level 4.7 g/dl (3.5-5.0); Albumin/Globulin Ratio 1.3 (1.1-1.8); Alkaline Phosphatase 68 U/L (38-126); Anion Gap 11.7 mEq/L (5-15); Aspartate Amino Transferase 31 U/L (14-36); Blood Urea Nitrogen 6 mg/dl (7-17); Calcium 9.3 mg/dl (8.4-10.2); Carbon Dioxide 29 mmol/L (22.0-30.0); Chloride 98 mmol/L (98-107); Creatinine Clearance Estimated 252 mL/min (50-200); Estimated Glomerular Filt Rate 120 ml/min (>60); GFR (African American) 145 ML/MIN (>60); Globulin 3.7 g/dL (1.3-3.2); Glucose 111 mg/dl (74-100); Lactic Acid 0.8 mmol/L (0.7-2.1); Potassium 3.7 mmoL/L (3.5-5.1); Sodium 135 mmol/L (136-145); Total Protein,Serum 8.4 g/dl (6.3-8.2)
[2021-09-26 12:19] LABS: Bilirubin,Total 0.1 mg/dl (0.2-1.3)
[2021-09-26 12:22] LABS: Microscopic, Urine URINE MICROSCOPIC (MICROSCOPIC)
[2021-09-26 12:26] LABS: Appearance,Urine SL CLOUDY (Clear); Bilirubin,Urine Negative (Negative); Blood, Urine 3+ (Negative); Color,Urine ORANGE (Yellow); Glucose,Urine (UA) Negative (Negative); Ketones,Urine Negative (Negative); Leukocyte Esterase,Urine Negative (Negative); Nitrate,Urine Negative (Negative); PH,Urine 7.5 (5.0-8.5); Protein,Urine Negative (Negative); Urobilinogen,Urine 0.2 EU/dl (0.2)
[2021-09-26 12:28] LABS: Urine Pregnancy, HCG Qual. Negative (Negative)
[2021-09-26 12:37] LABS: Procalcitonin 0.085 ng/mL (0.0-2.0)
[2021-09-26 12:38] LABS: Erythrocyte Sedimentation Rate 35 mm/hr (0-20)
[2021-09-26 12:38] LABS: Coronavirus 19, PCR Detected (NotDetected)
[2021-09-26 12:46] LABS: RBC,Urine TNTC #/hpf (0-3); Squamous Epithelial Cell,Urine Occasional #/hpf (0-5)
[2021-09-26 13:30] VITALS: BP 105/79; PULSE 98; RESP 19; TEMP 37.2; O2SAT 99
== END 2021-09-26 13:30 | disposition home or self-care (01) ==
PROVIDERS: Emergency Provider Emergency Medicine; PCP Nurse Practitioner Family
DX: U07.1 COVID-19 (principal); Z88.0 Allergy status to penicillin; Z88.6 Allergy status to analgesic agent; Z88.8 Allergy status to other drugs, medicaments and biological substances; F41.9 Anxiety disorder, unspecified; F32.A Depression, unspecified; F19.11 Other psychoactive substance abuse, in remission
CPT/HCPCS: 70450; 71046; 80053; 81001; 81025; 83605; 84145; 85025; 85651; 86140; 87040; 96365; 96375; 99284; C9803; U0003; U0005

== ENCOUNTER 2022-01-30 21:39 | Emergency (ER) | payer BC, SELFPAY ==
[2022-01-30 21:40] VITALS: BP 141/69; PULSE 71; RESP 18; TEMP 36.9; O2SAT 100; BMI 38.0
[2022-01-30 21:59] VITALS: BP 141/59; PULSE 71; O2SAT 100
[2022-01-30 22:19] VITALS: BMI 38.0
--- NOTE | 2022-01-30 22:21 | CT_ITS ---
PROCEDURE INFORMATION: Exam: CT Abdomen And Pelvis With Contrast Exam date and time: 01/30/2022 10:59 PM Age: 26 years old Clinical indication: Abdominal pain; Generalized; Prior surgery; Surgery type: Cholecystectomy TECHNIQUE: Imaging protocol: Computed tomography of the abdomen and pelvis with contrast. Radiation optimization: All CT scans at this facility use at least one of these dose optimization techniques: automated exposure control; mA and/or kV adjustment per patient size (includes targeted exams where dose is matched to clinical indication); or iterative reconstruction. Contrast material: ISOVUE; Contrast volume: 75 ml; Contrast route: IV; COMPARISON: CT ABDOMEN PELVIS W CON 02/22/2021 12:26 PM FINDINGS: Lungs: The lung bases are clear. No pleural effusion. Liver: Mild diffuse low-attenuation of the liver consistent with fatty infiltration. Gallbladder and bile ducts: Status post cholecystectomy. No ductal dilation. Pancreas: Unremarkable. Spleen: Mild splenomegaly, stable. Adrenal glands: Unremarkable. Kidneys and ureters: No renal mass or hydronephrosis. Stomach and bowel: Unremarkable. No obstruction. No mucosal thickening. No colonic diverticulosis or diverticulitis. Appendix: Status post appendectomy. Intraperitoneal space: No free air. No significant fluid collection. Retroperitoneal space: No bulky lymphadenopathy. Vasculature: Unremarkable. No abdominal aortic aneurysm. Lymph nodes: Unremarkable. No enlarged lymph nodes. Urinary bladder: Unremarkable as visualized. Reproductive: Unremarkable as visualized. Bones/joints: Unremarkable. No acute osseous abnormality. Soft tissues: Unremarkable. IMPRESSION: 1. No acute findings. 2. Hepatic steatosis. 3. Stable mild splenomegaly. 4. Status post cholecystectomy and appendectomy.
[2022-01-30 22:29] LABS: Microscopic, Urine URINE MICROSCOPIC (MICROSCOPIC)
[2022-01-30 22:31] VITALS: BP 122/63; PULSE 67; O2SAT 100
[2022-01-30 22:40] LABS: Appearance,Urine SL CLOUDY (Clear); Bilirubin,Urine Negative (Negative); Blood, Urine Negative (Negative); Color,Urine YELLOW (Yellow); Glucose,Urine (UA) Negative (Negative); Ketones,Urine Negative (Negative); Leukocyte Esterase,Urine Negative (Negative); Nitrate,Urine Negative (Negative); Protein,Urine Negative (Negative); Specific Gravity, Urine 1.015 (1.005-1.030)
[2022-01-30 22:42] LABS: Basophils # 0.1 K/mm3 (0-0.2); Basophils % 0.8 % (0.1-2.0); Eosinophils # 0.1 K/mm3 (0.0-0.4); Eosinophils % 1.2 % (0.1-12.0); Hematocrit 33.2 % (37.0-47.0); Hemoglobin 10.3 g/dL (12.2-16.2); Lymphocytes # 1.8 K/mm3 (0.7-4.5); Lymphocytes % 22.4 % (10-50); Mean Corpuscular HGB Conc 31.1 g/dL (31.8-35.4); Mean Corpuscular Hemoglobin 22.5 pg (27.0-31.2); Mean Corpuscular Volume 72.3 fl (81-99); Mean Platelet Volume 7.6 fl (7.4-10.4); Monocytes # 0.3 K/mm3 (0.1-1.0); Monocytes % 4.2 % (1.7-9.3); Neutrophils # 5.7 K/mm3 (1.8-7.8); Neutrophils % 71.5 % (37.0-80.0); Platelet Count 468 K/mm3 (142-424); Red Cell Distribution Width 16.6 % (11.5-17.5); White Blood Count 7.9 K/mm3 (4.8-10.8)
[2022-01-30 22:45] LABS: Alanine Aminotransferase 23 U/L (12-78); Albumin Level 4.4 g/dl (3.5-5.0); Albumin/Globulin Ratio 1.3 (1.1-1.8); Alkaline Phosphatase 67 U/L (38-126); Amylase 59 U/L (30-110); Aspartate Amino Transferase 33 U/L (14-36); Blood Urea Nitrogen 8 mg/dl (7-17); Calcium 8.7 mg/dl (8.4-10.2); Carbon Dioxide 29 mmol/L (22.0-30.0); Chloride 102 mmol/L (98-107); Creatinine Clearance Estimated 303 mL/min (50-200); Estimated Glomerular Filt Rate 148 ml/min (>60); GFR (African American) 179 ML/MIN (>60); Globulin 3.5 g/dL (1.3-3.2); Glucose 92 mg/dl (74-100); Lipase 82 U/L (23-300); Sodium 139 mmol/L (136-145); Total Protein,Serum 7.9 g/dl (6.3-8.2)
[2022-01-30 22:46] LABS: Lactic Acid 1.2 mmol/L (0.7-2.1)
[2022-01-30 22:50] LABS: C-Reactive Protein 6.9 mg/L (0-4)
[2022-01-30 22:56] LABS: Bilirubin,Total 0.1 mg/dl (0.2-1.3)
[2022-01-30 23:03] LABS: Bacteria,Urine 1+ /lpf
[2022-01-30 23:04] LABS: Procalcitonin 0.031 ng/mL (0.0-2.0)
--- NOTE | 2022-01-30 23:24 | HMH.EDABDPAI ---
Discharge Plan Disposition Patient Disposition: Home, Self-Care Chief Complaint: Abdominal Pain Prescriptions Prescriptions: No Action buprenorphine-naloxone 1 EACH tablet, sublingual 1.5 each SL DAILY Referrals Follow up/Referrals: Isela Byrd [Primary Care Provider] - See instructions Clinical Impressions Clinical Impression: Viral syndrome Stand Alone Forms Stand Alone Forms: Work/School Release Instructions Patient Instructions: DI for Acute Abdominal Pain Discharge ED Provider: David Demarco Abdominal Pain HPI General Chief Complaint: Abdominal Pain Stated Complaint: cant urinate, back pain, and adm pain Time Seen by Provider: 01/30/22 23:24 Mode of Arrival: Ambulatory Source of Information: Patient and Medical Record Limitations: No Limitations Description of Symptoms (Recalled from ER Triage Doc. by RN): PT REPORTS SHE HAS BEEN HAVING FEVERS UP TO 102 X 5 DAYS. NAUSEA AND VOMITING X 3 DAYS AND UNABLE TO VOID X 2 DAYS (URINE COLLECTED UPON ARRIVAL). History of Present Illness HPI narrative: over the last few days has fever with n/v and dec urination MD complaint: abdominal pain Onset (ago): day(s) Location: periumbilical Severity: moderate Radiation: epigastric Associated symptoms: fever Related Data Home Medications Medication Instructions Recorded Confirmed buprenorphine 8 mg-naloxone 2 mg 1.5 each SL DAILY WITHDRAWAL 10/31/20 01/30/22 sublingual tablet SYMPTOMS Allergies Allergy/AdvReac Type Severity Reaction Status Date / Time loratadine [From CLARITIN] Allergy Intermediate I-RASH Verified 01/03/21 17:09 ondansetron Allergy Intermediate I-RASH Verified 01/03/21 17:09 [From ZOFRAN ( HYDROCHLORIDE)] Penicillins [PENICILLINS] Allergy Intermediate I-RASH Verified 01/03/21 17:09 hydrocodone [From Lortab] Allergy Unknown Verified 01/03/21 17:09 allergy reaction PFSH PFS Surgical History (Updated 01/30/22 @ 22:42 by Marisa Costa RN) Tubal ligation status Social History (Updated 01/30/22 @ 22:42 by Marisa Costa RN) Smoking Status: Never smoker alcohol intake: never substance use type: former substance user current occupational status: employed Travel in the last 8 weeks: None ROS Obtained: Yes All systems reviewed & no additional complaints except as documented Constitutional Constitutional: Reports body ache, Reports fever(s) and Denies headache(s) Eyes Eyes: Denies eye discharge ENT Ears, Nose, Mouth, and Throat: Denies headache(s) Cardiovascular Cardiovascular: Denies chest pain Respiratory Respiratory: Denies cough Gastrointestinal Gastrointestingal: Reports as per HPI, abdominal pain and vomiting Musculoskeletal Musculoskeletal: Denies back pain Integumentary/Breasts Skin/Breast: Denies rash Neurologic Neurologic: Denies headache(s) Physical Exam General General appearance: alert Head Head exam: normocephalic Eye Eye exam: Present PERRL and EOMI ENT ENT exam: Present normal oropharynx and mucous membranes moist Neck Neck exam: Present trachea midline; Absent meningismus or lymphadenopathy Respiratory Respiratory exam: Present normal lung sounds bilaterally; Absent respiratory distress Cardiovascular Cardiovascular exam: Present regular rate; Absent systolic murmur Abdominal Exam Abdominal exam: Present soft and tenderness Abdominal tenderness: Present diffuse and moderate Extremities Exam Extremities exam: Absent joint swelling Back Exam Back exam: Absent CVA tenderness (R) or CVA tenderness (L) Neurological Exam Neurological exam: Present alert, oriented X3 and CN II-XII intact Psychiatric Psychiatric exam: Present normal affect Skin Skin exam: Absent rash Lymphatic Lymphatic Findings: no adenopathy Medical Decision Making Medical Records Medical records reviewed: Yes I reviewed the patient's medical records. Anthony Inquiry Pt receiving controlled substance: No Vital Signs: 01/30/22 21
[2022-01-31 00:01] VITALS: BP 129/68; PULSE 51; O2SAT 100
[2022-01-31 00:01] LABS: Erythrocyte Sedimentation Rate 18 mm/hr (0-20)
[2022-01-31 00:30] VITALS: BP 137/63; PULSE 53; O2SAT 92
[2022-01-31 01:00] VITALS: BP 127/74; PULSE 56; O2SAT 99
[2022-01-31 01:17] VITALS: BP 132/68; PULSE 78; RESP 16; TEMP 36.6; O2SAT 99
== END 2022-01-31 01:37 | disposition home or self-care (01) ==
PROVIDERS: Emergency Provider Emergency Medicine; PCP Nurse Practitioner Family
DX: B34.9 Viral infection, unspecified (principal)
CPT/HCPCS: 74177; 80053; 81001; 82150; 83605; 83690; 84145; 85025; 85651; 86140; 87040; 96365; 99284; Q9967

== ENCOUNTER 2022-06-10 17:39 | Emergency (ER) | payer BC, SELFPAY ==
[2022-06-10 17:40] VITALS: BP 115/80; PULSE 120; RESP 19; TEMP 37.5; O2SAT 99; BMI 36.5
[2022-06-10 18:38] LABS: Microscopic, Urine URINE MICROSCOPIC (MICROSCOPIC)
[2022-06-10 18:41] LABS: Basophils # 0.1 K/mm3 (0-0.2); Basophils % 0.8 % (0.1-2.0); Eosinophils # 0.1 K/mm3 (0.0-0.4); Eosinophils % 0.9 % (0.1-12.0); Hematocrit 35.9 % (37.0-47.0); Hemoglobin 11.8 g/dL (12.2-16.2); Lymphocytes # 0.3 K/mm3 (0.7-4.5); Lymphocytes % 3.5 % (10-50); Mean Corpuscular Hemoglobin 22.4 pg (27.0-31.2); Mean Corpuscular Volume 68.1 fl (81-99); Mean Platelet Volume 7.5 fl (7.4-10.4); Monocytes # 0.2 K/mm3 (0.1-1.0); Monocytes % 1.9 % (1.7-9.3); Neutrophils # 8.6 K/mm3 (1.8-7.8); Neutrophils % 92.9 % (37.0-80.0); Platelet Count 408 K/mm3 (142-424); Red Blood Count 5.28 M/mm3 (4.20-5.40); Red Cell Distribution Width 16.5 % (11.5-17.5); White Blood Count 9.2 K/mm3 (4.8-10.8)
[2022-06-10 18:44] LABS: Chloride 98 mmol/L (98-107); Sodium 138 mmol/L (136-145)
[2022-06-10 18:45] LABS: Potassium 3.7 mmoL/L (3.5-5.1)
[2022-06-10 18:45] LABS: Appearance,Urine CLEAR (Clear); Bilirubin,Urine 1+ (Negative); Blood, Urine Negative (Negative); Color,Urine YELLOW (Yellow); Glucose,Urine (UA) Negative (Negative); Ketones,Urine 1+ (Negative); Leukocyte Esterase,Urine Negative (Negative); Nitrate,Urine Negative (Negative); Protein,Urine TRACE (Negative); Specific Gravity, Urine 1.025 (1.005-1.030); Urobilinogen,Urine 0.2 EU/dl (0.2)
[2022-06-10 18:46] LABS: MANUAL DIFFERENTIAL MANUAL DIFFERENTIAL (MANUAL DIFF)
[2022-06-10 18:47] LABS: Urine Pregnancy, HCG Qual. Negative (Negative); WBC,Urine Occasional #/hpf (0-3)
[2022-06-10 18:48] LABS: Anion Gap 15.7 mEq/L (5-15); Blood Urea Nitrogen 8 mg/dl (7-17); Calcium 8.9 mg/dl (8.4-10.2); Carbon Dioxide 28 mmol/L (22.0-30.0); Creatinine Clearance Estimated 290 mL/min (50-200); Estimated Glomerular Filt Rate 148 ml/min (>60); GFR (African American) 179 ML/MIN (>60); Glucose 122 mg/dl (74-100)
[2022-06-10 18:52] VITALS: BP 119/73; PULSE 106; RESP 19; O2SAT 99
--- NOTE | 2022-06-10 19:13 | CT_ITS ---
PROCEDURE INFORMATION: Exam: CT Abdomen And Pelvis Without Contrast Exam date and time: 06/10/2022 7:24 PM Age: 26 years old Clinical indication: Abdominal pain; Other: Bilateral flank into the back pain; Additional info: Bilateral flank pain, R/O kidney stone TECHNIQUE: Imaging protocol: Computed tomography of the abdomen and pelvis without contrast. Radiation optimization: All CT scans at this facility use at least one of these dose optimization techniques: automated exposure control; mA and/or kV adjustment per patient size (includes targeted exams where dose is matched to clinical indication); or iterative reconstruction. COMPARISON: CT ABDOMEN PELVIS W CON 01/30/2022 10:59 PM FINDINGS: Liver: Diffuse low-attenuation of the liver. No mass. Gallbladder and bile ducts: Post cholecystectomy change. Pancreas: Parenchymal enhancement is not evaluated without contrast. No ductal dilation. Spleen: Parenchymal enhancement is not evaluated without contrast. No splenomegaly. Adrenal glands: No mass. Kidneys and ureters: Parenchymal enhancement is not evaluated without contrast. No hydronephrosis. Stomach and bowel: No obstruction. No mucosal thickening. Appendix: No evidence of appendicitis. Intraperitoneal space: No free air. No significant fluid collection. Vasculature: Limited evaluation without contrast. No abdominal aortic aneurysm. Lymph nodes: Scattered subcentimeter mesenteric lymph nodes which are nonspecific. Urinary bladder: No acute abnormality. Reproductive: No acute abnormality. Bones/joints: Mild scoliosis. No fracture. Soft tissues: Extensive subcutaneous adipose extending beyond the field of view. IMPRESSION: Chronic changes without acute process.
[2022-06-10 19:33] LABS: Lymphocytes % 10 % (10-50); Monocytes % 1 % (2-9); Neutrophils % 89 % (42-76); Stomatocytes 1+; Total Cells Counted 100
[2022-06-10 19:34] LABS: Hypochromasia 2+; Platelet Estimate Normal
[2022-06-10 19:38] VITALS: BP 126/78; PULSE 86; RESP 16; TEMP 37.2; O2SAT 98
[2022-06-10 19:58] LABS: Procalcitonin 0.145 ng/mL (0.0-2.0)
--- NOTE | 2022-06-10 20:08 | PC.NURSE ---
Dr. Fan at [facility]
--- NOTE | 2022-06-10 21:01 | [facility].EDGENADL ---
Discharge Plan Disposition Patient Disposition: Home, Self-Care Condition: Good Prescriptions Prescriptions: New promethazine 12.5 mg tablet 12.5 mg PO TID PRN (Reason: nausea and vomiting) Qty: 14 0RF No Action buprenorphine-naloxone 1 EACH tablet, sublingual 1.5 each SL DAILY Referrals Follow up/Referrals: Divya Madison APRN [Primary Care Provider] - See instructions Activity Restrictions/Add. Instructions Additional Instructions/Restrictions: Please call and schedule follow-up appointment with your regular doctor. Please use Tylenol and ibuprofen as needed for discomfort. Please try to increase your hydration. Please use the Phenergan as needed for nausea and vomiting. If you experience any worsening or new concerning symptoms, please be reevaluated. Clinical Impressions Clinical Impression: Nausea & vomiting Stand Alone Forms Stand Alone Forms: Work/School Release Instructions Patient Instructions: Nausea and Vomiting-Adult Discharge ED Provider: Zora Fan General Adult HPI General Chief complaint: Nausea/Vomiting/Diarrhea Stated complaint: back pain and urination pain Time Seen by Provider: 06/10/22 20:08 Mode of Arrival: Ambulatory Source of Information: Patient Limitations: No Limitations Description of Symptoms (Recalled from ER Triage Doc. by RN): Patient reports diagnosed with UTI 2 weeks ago. Completed 2 rounds of oral ABX. Reports continued and worsening bilateral flank pain, hematuria, dysuria, subjective fevers at home, decreased appetite. History of Present Illness HPI narrative: 26-year-old female with PMH of UTI who presents with persistent fevers, nausea, vomiting, dysuria. Patient states that she has had a kidney infection for approximately 1 month and has finished 2 courses of antibiotics, her last course finished approximately a week ago. She is unsure of the specific antibiotic she was on. Patiently notes decreased oral intake and new development of hematuria. No abdominal pain, chest pain, shortness of breath. No recent changes in her bowel movements. Related Data Home Medications Medication Instructions Recorded Confirmed buprenorphine 8 mg-naloxone 2 mg 1.5 each SL DAILY WITHDRAWAL 10/31/20 06/10/22 sublingual tablet SYMPTOMS Previous Rx's Medication Instructions Recorded promethazine 12.5 mg tablet 12.5 mg PO TID PRN nausea and 06/10/22 vomiting #14 tabs Allergies Allergy/AdvReac Type Severity Reaction Status Date / Time loratadine [From CLARITIN] Allergy Intermediate I-RASH Verified 01/03/21 17:09 ondansetron Allergy Intermediate I-RASH Verified 01/03/21 17:09 [From ZOFRAN ( HYDROCHLORIDE)] Penicillins [PENICILLINS] Allergy Intermediate I-RASH Verified 01/03/21 17:09 hydrocodone [From Lortab] Allergy Unknown Verified 01/03/21 17:09 allergy reaction PFSH [facility] Disclaimer: The information contained in this section may have been updated after the patient was seen, as this information can be updated by other users. Surgical History (Updated 01/30/22 @ 22:42 by Marisa Costa RN) Tubal ligation status Social History (Updated 01/30/22 @ 22:42 by Marisa Costa RN) Smoking Status: Former smoker alcohol intake: never substance use type: former substance user current occupational status: employed Travel in the last 8 weeks: None ROS Obtained: Yes All systems reviewed & no additional complaints except as documented Physical Exam General General appearance: alert Head Head exam: normocephalic Eye Eye exam: Present PERRL and EOMI ENT ENT exam: Present normal oropharynx and mucous membranes moist Neck Neck exam: Present normal inspection and full ROM Respiratory Respiratory exam: Present normal lung sounds bilaterally; Absent respiratory distress Cardiovascular Cardiovascular exam: Present normal heart sounds Abdominal Exam Abdominal exam: Present soft; Absent tenderness, guarding
--- NOTE | 2022-06-10 21:02 | PC.NURSE ---
Pt was able to tolerate eating crackers as requested by
[2022-06-10 21:39] VITALS: BP 130/85; PULSE 88; RESP 15; TEMP 37.5; O2SAT 98
== END 2022-06-10 21:39 | disposition home or self-care (01) ==
PROVIDERS: Emergency Medicine; Emergency Provider Student in an Organized Health Care Education/Training Program; PCP Nurse Practitioner
DX: R11.2 Nausea with vomiting, unspecified (principal); R50.9 Fever, unspecified; M54.9 Dorsalgia, unspecified; R30.0 Dysuria; R31.9 Hematuria, unspecified; Z87.440 Personal history of urinary (tract) infections; R10.9 Unspecified abdominal pain; Z87.891 Personal history of nicotine dependence; Z98.51 Tubal ligation status
CPT/HCPCS: 74176; 80048; 81001; 81025; 83605; 84145; 85007; 85025; 87040; 96361; 96374; 96375; 99285

== ENCOUNTER 2023-10-30 06:28 | Emergency (ER) | payer BC, SELFPAY ==
--- NOTE | 2023-10-30 06:28 | ECG_ITS ---
APPROVED REPORT Exam: Resting ECG HR:86 bpm ECG Measurements Heart Rate 86 AXES UT 183 P 61 QRSd 88 QRS 48 QT 357 T 37 QTc 401 Conclusion Sinus rhythm Electronically signed by : JUANA FLOOD, 10/30/2023 07:01:42
[2023-10-30 06:30] VITALS: BP 133/79; PULSE 94; RESP 20; TEMP 36.8; O2SAT 95; BMI 38.0
[2023-10-30 06:33] VITALS: PULSE 90
--- NOTE | 2023-10-30 06:35 | XR_ITS ---
FINAL REPORT CLINICAL HISTORY: chest pain COMPARISON: 09/26/2021 FINDINGS: SINGLE-VIEW CHEST The heart size is normal. The mediastinum is normal. There are mild bibasilar opacities, favor atelectasis. There is no pneumothorax. IMPRESSION: Mild bibasilar atelectasis. Reviewed, Interpreted and Dictated by John Hernández III, MD Transcribed by Viv Bryant Authenticated and [facility]
--- NOTE | 2023-10-30 06:41 | ED_ITS ---
Discharge Plan Disposition Patient Disposition: Home, Self-Care Chief Complaint: Chest Pain Prescriptions Prescriptions: No Action buprenorphine-naloxone 8-2 mg film 2 film sublingual DAILY Patient Comments: PLACE 1 AND 1/2 FILMS UNDER THE TONGUE AND ALLOW TO DISSOLVE 1 TIME EACH DAY Referrals Follow up/Referrals: Isela Byrd [Primary Care Provider] - See instructions Activity Restrictions/Add. Instructions Additional Instructions/Restrictions: Call your family doctor to establish care for this visit to the emergency department and schedule follow-up within 48 hours to ensure improvement. If you have any worsening of your condition or any other concerning signs or symptoms, return to the emergency department or your primary care doctor for further evaluation. Clinical Impressions Clinical Impression: Chest pain Discharge ED Provider: Isreal Luna General Adult HPI <Cyrus Diana MD - Last Filed: 10/30/23 06:48> General Chief complaint: Chest Pain Stated complaint: Chest tightness Time Seen by Provider: 10/30/23 06:35 Mode of Arrival: Ambulatory Source of Information: Patient Limitations: No Limitations Description of Symptoms (Recalled from ER Triage Doc. by RN): 28 F presents from home with c/o mid sternal chest tightness/pain that radiates to her right arm. Patient reports going to bed at her baseline; however, at 0100 she woke up with these symptoms. Patient reports nausea with vomiting approximately 9-10 times. Denies other ACS symptoms. History of Present Illness HPI narrative: 28-year-old female without significant past medical history presents for chest pain. She reports it is centrally located, radiating to the right side down the right arm. She woke up with it a few hours prior to arrival. No prior cardiac history or pulmonary history. No recent fever or illness. Nothing like this has happened before. She did not take anything prior to arrival. She reports nausea with recurrent vomiting up to 10 times. Related Data Home Medications Medication Instructions Recorded Confirmed buprenorphine 8 mg-naloxone 2 mg 2 film sublingual DAILY 10/30/23 10/30/23 sublingual film Allergies Allergy/AdvReac Type Severity Reaction Status Date / Time loratadine [From CLARITIN] Allergy Intermediate I-RASH Verified 01/03/21 17:09 ondansetron Allergy Intermediate I-RASH Verified 01/03/21 17:09 [From ZOFRAN ( HYDROCHLORIDE)] Penicillins [PENICILLINS] Allergy Intermediate I-RASH Verified 01/03/21 17:09 hydrocodone [From Lortab] Allergy Unknown Verified 01/03/21 17:09 allergy reaction PFSH <Cyrus Diana MD - Last Filed: 10/30/23 06:48> [facility] Disclaimer: The information contained in this section may have been updated after the patient was seen, as this information can be updated by other users. Surgical History Tubal ligation status Social History (Updated 10/30/23 @ 06:37 by Manolo Guajardo RN) Smoking Status: Never smoker alcohol intake: never substance use type: former substance user current occupational status: employed Travel in the last 8 weeks: None <Cyrus Diana MD - Last Filed: 10/30/23 06:48> ROS Obtained: Yes All systems reviewed & no additional complaints except as documented Physical Exam <Cyrus Diana MD - Last Filed: 10/30/23 06:48> General General appearance: alert and anxious Head Head exam: atraumatic and normocephalic Eye Eye exam: Present normal appearance, PERRL and EOMI ENT ENT exam: Present normal oropharynx and normal external ear exam Neck Neck exam: Present normal inspection and full ROM Chest Chest inspection: Present normal inspection and symmetric chest wall rise; Absent tenderness Respiratory Respiratory exam: Present normal lung sounds bilaterally; Absent respiratory distress Cardiovascular Cardiovascular exam: Present regular rate and normal rhythm Abdominal Exam Abdominal exam: Present soft; Absent distention, tenderness or guarding Extremities Exam Extremities exam: Present normal inspection; Absent edema or joint swelling Back Exam Back exam: Present normal inspection; Absent tenderness Neurological Exam Neurological exam: Present alert and oriented X3; Absent motor sensory deficit Psychiatric Psychiatric exam: Present normal affect and normal mood Skin Skin exam: Present warm, dry and normal color Lymphatic Lymphatic Findings: no adenopathy Medical Decision Making <Cyrus Diana MD - Last Filed: 10/30/23 06:48> Medical Records Medical records reviewed: Yes I reviewed the patient's medical records. Anthony Inquiry Pt receiving controlled substance: No Anthony was queried for this patient: No Vital Signs: 10/30/23 06:30 10/30/23 06:33 10/30/23 07:15 Temperature 98.2 F Temperature Source Oral Pulse Rate 90 79 Pulse Rate [Left] 94 H Respiratory Rate 20 24 Blood Pressure [Right Arm] 133/79 Blood Pressure Mean [Right Arm] 97 Blood Pressure Source [Right Arm] Automatic Cuff Blood Pressure Position [Right Arm] Sitting 02 Sat by Pulse Oximetry 95 96 Oxygen Delivery Method Room Air 10/30/23 07:30 10/30/23 07:45 Temperature Temperature Source Pulse Rate 77 75 Pulse Rate [Left] Respiratory Rate 23 23 Blood Pressure [Right Arm] Blood Pressure Mean [Right Arm] Blood Pressure Source [Right Arm] Blood Pressure Position [Right Arm] 02 Sat by Pulse Oximetry 98 98 Oxygen Delivery Method Lab Data Lab results reviewed: Yes I reviewed the patient's lab results. Lab Results 10/30/23 06:55: WBC 8.1, RBC 5.13, Hgb 13.2, Hct 40.8, MCV 79.5 L, MCH 25.8 L, MCHC 32.5, RDW 16.3, Plt Count 322, MPV 7.4, Neut % (Auto) 91.0 H, Lymph % (Auto) 5.8 L, Mcclain % (Auto) 2.5, Eos % (Auto) 0.4, Baso % (Auto) 0.2, Neut # (Auto) 7.4, Lymph # (Auto) 0.5 L, Mcclain # (Auto) 0.2, Eos # (Auto) 0.0, Baso # (Auto) 0.0, Total Counted 100, Neutrophils % (Manual) 87 H, Lymphocytes % (Manual) 11, Monocytes % (Manual) 2, Platelet Estimate Normal, RBC Morphology Normal, Sodium 141, Potassium 3.7, Chloride 103, Carbon Dioxide 25, Anion Gap 16.7 H, BUN 12, Creatinine 0.50 L, Estimated Creat Clear 297, Estimated GFR 146, Est GFR ( Amer) 177, Glucose 116 H, Calcium 9.4, Total Bilirubin 0.6, AST 33, ALT 32, Alkaline Phosphatase 66, Troponin I < 0.01, Total Protein 9.1 H, Albumin 4.9, Globulin 4.2 H, Albumin/Globulin Ratio 1.2, Lipase 66 10/30/23 06:55 10/30/23 06:55 Orders (Tests/Meds): ED MEDICATIONS Discontinued Medications Generic Name Dose Route Start Last Admin Trade Name Freq PRN Reason Stop Dose Admin Acetaminophen 1,000 mg 10/30/23 06:35 10/30/23 06:43 Acetaminophen 500mg Tab PO 10/30/23 06:36 1,000 mg ONCE ONE Administration Lactated Ringer's 1,000 mls @ 999 mls/hr 10/30/23 06:45 10/30/23 06:42 Lactated Ringer's 1000 Ml Bag IV 10/30/23 07:45 999 mls/hr .Q1H1M MIRA Administration Ketorolac Tromethamine 30 mg 10/30/23 06:35 10/30/23 06:43 Ketorolac 30mg/Ml Vial IV 10/30/23 06:36 30 mg ONCE ONE Administration Lidocaine HCl 15 ml 10/30/23 06:35 10/30/23 06:42 Lidocaine 2% Viscous Theresa 15ml Udc PO 10/30/23 06:36 15 ml ONCE ONE Administration Promethazine HCl 25 mg 10/30/23 06:37 10/30/23 06:42 Promethazine Hcl 25mg/Ml 1ml Vial IV 10/30/23 06:38 25 mg ONCE ONE Administration Sodium Chloride 25 ml 10/30/23 06:37 10/30/23 06:42 Sodium Chloride 0.9% 25ml Bag IV 10/30/23 06:38 25 ml ONCE ONE Administration ORDERS Category Date Time Status CXR --portable [XR chest portable] Stat Exams 10/30/23 06:35 Taken CBC w/Auto Diff [Complete Blood Count Auto Diff] Stat Lab 10/30/23 06:55 Completed CMP [Comprehensive Metabolic Panel] Stat Lab 10/30/23 06:55 Completed HCG Qualitative, Serum Stat Lab 10/30/23 06:55 Received Lipase Stat Lab 10/30/23 06:55 Completed Troponin I Q3H Lab 10/30/23 06:55 Completed Troponin I Q3H Lab 10/30/23 09:45 Ordered ECG Data Tracing #1: I reviewed this ECG and interpreted as documented below: Sinus rhythm, rate of 86, no concerning ST or T wave changes, insignificant Q-wave in lead III ECG initial impression date: 10/30/23 ECG initial impression time: 06:29 HEART Score History (anamnesis): Moderately suspicious ECG: Non-specific disturbance Age: <45 years Risk factors: No known risk factors Troponin: </= normal limit HEART Score: 2 Medical Decision Narrative: 28-year-old female without significant past medical history presents with central chest pain radiating to the right with associated vomiting.. History was obtained interactive discussion with patient. On arrival, patient is [afebrile, hemodynamically stable, satting appropriately, alert, oriented x4, GCS 15], moving all extremities spontaneously. Full physical exam performed and significant for no significant physical exam abnormality Differential includes but is not limited to ACS, PE, musculoskeletal chest pain, GERD, esophagitis, pancreatitis, gastroenteritis. Patient was given viscous lidocaine, Phenergan, Tylenol, Toradol for symptomatic management and correction of underlying abnormalities. Workup initiated including CBC CMP troponin EKG chest x-ray lipase. D-dimer was considered but deemed unnecessary as patient is PERC negative. At this time care handed off to oncoming physician. <Isreal Luna MD - Last Filed: 10/30/23 08:32> Vital Signs: 10/30/23 06:30 10/30/23 06:33 10/30/23 07:15 Temperature 98.2 F Temperature Source Oral Pulse Rate 90 79 Pulse Rate [Left] 94 H Respiratory Rate 20 24 Blood Pressure [Right Arm] 133/79 Blood Pressure Mean [Right Arm] 97 Blood Pressure Source [Right Arm] Automatic Cuff Blood Pressure Position [Right Arm] Sitting 02 Sat by Pulse Oximetry 95 96 Oxygen Delivery Method Room Air 10/30/23 07:30 10/30/23 07:45 Temperature Temperature Source Pulse Rate 77 75 Pulse Rate [Left] Respiratory Rate 23 23 Blood Pressure [Right Arm] Blood Pressure Mean [Right Arm] Blood Pressure Source [Right Arm] Blood Pressure Position [Right Arm] 02 Sat by Pulse Oximetry 98 98 Oxygen Delivery Method Lab Data Lab Results 10/30/23 06:55: WBC 8.1, RBC 5.13, Hgb 13.2, Hct 40.8, MCV 79.5 L, MCH 25.8 L, MCHC 32.5, RDW 16.3, Plt Count 322, MPV 7.4, Neut % (Auto) 91.0 H, Lymph % (Auto) 5.8 L, Mcclain % (Auto) 2.5, Eos % (Auto) 0.4, Baso % (Auto) 0.2, Neut # (Auto) 7.4, Lymph # (Auto) 0.5 L, Mcclain # (Auto) 0.2, Eos # (Auto) 0.0, Baso # (Auto) 0.0, Total Counted 100, Neutrophils % (Manual) 87 H, Lymphocytes % (Manual) 11, Monocytes % (Manual) 2, Platelet Estimate Normal, RBC Morphology Normal, Sodium 141, Potassium 3.7, Chloride 103, Carbon Dioxide 25, Anion Gap 16.7 H, BUN 12, Creatinine 0.50 L, Estimated Creat Clear 297, Estimated GFR 146, Est GFR ( Amer) 177, Glucose 116 H, Calcium 9.4, Total Bilirubin 0.6, AST 33, ALT 32, Alkaline Phosphatase 66, Troponin I < 0.01, Total Protein 9.1 H, Albumin 4.9, Globulin 4.2 H, Albumin/Globulin Ratio 1.2, Lipase 66 Orders (Tests/Meds): ED MEDICATIONS Discontinued Medications Generic Name Dose Route Start Last Admin Trade Name Freq PRN Reason Stop Dose Admin Acetaminophen 1,000 mg 10/30/23 06:35 10/30/23 06:43 Acetaminophen 500mg Tab PO 10/30/23 06:36 1,000 mg ONCE ONE Administration Lactated Ringer's 1,000 mls @ 999 mls/hr 10/30/23 06:45 10/30/23 06:42 Lactated Ringer's 1000 Ml Bag IV 10/30/23 07:45 999 mls/hr .Q1H1M MIRA Administration Ketorolac Tromethamine 30 mg 10/30/23 06:35 10/30/23 06:43 Ketorolac 30mg/Ml Vial IV 10/30/23 06:36 30 mg ONCE ONE Administration Lidocaine HCl 15 ml 10/30/23 06:35 10/30/23 06:42 Lidocaine 2% Viscous Theresa 15ml Udc PO 10/30/23 06:36 15 ml ONCE ONE Administration Promethazine HCl 25 mg 10/30/23 06:37 10/30/23 06:42 Promethazine Hcl 25mg/Ml 1ml Vial IV 10/30/23 06:38 25 mg ONCE ONE Administration Sodium Chloride 25 ml 10/30/23 06:37 10/30/23 06:42 Sodium Chloride 0.9% 25ml Bag IV 10/30/23 06:38 25 ml ONCE ONE Administration ORDERS Category Date Time Status CXR --portable [XR chest portable] Stat Exams 10/30/23 06:35 Taken CBC w/Auto Diff [Complete Blood Count Auto Diff] Stat Lab 10/30/23 06:55 Completed CMP [Comprehensive Metabolic Panel] Stat Lab 10/30/23 06:55 Completed HCG Qualitative, Serum Stat Lab 10/30/23 06:55 Received Lipase Stat Lab 10/30/23 06:55 Completed Troponin I Q3H Lab 24 06:55 Completed Troponin I Q3H Lab 10/30/23 09:45 Ordered HEART Score HEART Score: 2 Medical Decision Narrative: 28-year-old female without significant past medical history presents with central chest pain radiating to the right with associated vomiting.. History was obtained interactive discussion with patient. On arrival, patient is afebrile, hemodynamically stable, satting appropriately, alert, oriented x4, GCS 15, moving all extremities spontaneously. Full physical exam performed and significant for no significant physical exam abnormality Differential includes but is not limited to ACS, PE, musculoskeletal chest pain, GERD, esophagitis, pancreatitis, gastroenteritis. Patient was given viscous lidocaine, Phenergan, Tylenol, Toradol for symptomatic management and correction of underlying abnormalities. Workup initiated including CBC CMP troponin EKG chest x-ray lipase. D-dimer was considered but deemed unnecessary as patient is PERC negative. At this time care handed off to oncoming physician. Jeremy: I assumed primary responsibility for this patient after signout from previous physician. On my evaluation, patient sleeping comfortably. Upon being woken, she states she feels much better, no discomfort at this time. States that she has had a cholecystectomy, so unlikely that is causing her pain. Independent interpretation of workup demonstrates nonactionable CBC or chemistry, troponin negative. Is also negative. Patient low risk Wells and PERC negative. Heart score 1 for history. Chest x-ray independently interpreted, no cardiopulmonary disease. Because patient lowers chest pain, deemed appropriate for outpatient management. Because patient at baseline without signs or symptoms of clinical decompensation, deemed appropriate for discharge. Results were relayed to patient who voiced understanding and were agreeable to outpatient management and follow up. I discussed my clinical impression with patient and answered all questions. At this time, the evidence for any other entities in the differential is insufficient to warrant any further testing or ED observation. This was explained as well. Advisory was given that persistent or worsening symptoms require further evaluation. I confirmed the understanding of this discussion. Procedures <Cyrus Diana MD - Last Filed: 10/30/23 06:48> Risk/Benefits of Procedure(s) Were Explained: Yes Critical Care <Cyrus Diana MD - Last Filed: 10/30/23 06:48> Critical Care Time Critical Care Time: No
[2023-10-30] MEDS: LACTATED RINGERS 1000ML 1,000 ML 999 ML IV (06:42)
[2023-10-30] MEDS: LIDOCAINE 2% VISCOUS SOL 15ML UDC 15 ML PO (06:42)
[2023-10-30] MEDS: PROMETHAZINE HCL 25MG/ML 1ML VIAL 25 MG IV (06:42)
[2023-10-30] MEDS: SODIUM CHLORIDE 0.9% 25ML BAG 25 ML IV (06:42)
[2023-10-30] MEDS: KETOROLAC 30MG/ML VIAL 30 MG IV (06:43)
[2023-10-30] MEDS: ACETAMINOPHEN 500MG TAB 1000 MG PO (06:43)
[2023-10-30 07:09] LABS: Chloride 103 mmol/L (98-107); Potassium 3.7 mmoL/L (3.5-5.1); Sodium 141 mmol/L (136-145)
[2023-10-30 07:11] LABS: Alanine Aminotransferase 32 U/L (12-78); Aspartate Amino Transferase 33 U/L (14-36); Blood Urea Nitrogen 12 mg/dl (7-17); Creatinine Clearance Estimated 297 mL/min (50-200); Estimated Glomerular Filt Rate 146 ml/min (>60); GFR (African American) 177 ML/MIN (>60)
[2023-10-30 07:12] LABS: Albumin Level 4.9 g/dl (3.5-5.0); Albumin/Globulin Ratio 1.2 (1.1-1.8); Alkaline Phosphatase 66 U/L (38-126); Anion Gap 16.7 mEq/L (5-15); Bilirubin,Total 0.6 mg/dl (0.2-1.3); Calcium 9.4 mg/dl (8.4-10.2); Carbon Dioxide 25 mmol/L (22.0-30.0); Globulin 4.2 g/dL (1.3-3.2); Glucose 116 mg/dl (74-100); Lipase 66 U/L (23-300); Total Protein,Serum 9.1 g/dl (6.3-8.2)
[2023-10-30 07:15] VITALS: PULSE 79; RESP 24; O2SAT 96
[2023-10-30 07:24] LABS: Basophils % 0.2 % (0.1-2.0); Eosinophils % 0.4 % (0.1-12.0); Hematocrit 40.8 % (37.0-47.0); Hemoglobin 13.2 g/dL (12.2-16.2); Lymphocytes # 0.5 K/mm3 (0.7-4.5); Lymphocytes % 5.8 % (10-50); Mean Corpuscular HGB Conc 32.5 g/dL (31.8-35.4); Mean Corpuscular Hemoglobin 25.8 pg (27.0-31.2); Mean Corpuscular Volume 79.5 fl (81-99); Mean Platelet Volume 7.4 fl (7.4-10.4); Monocytes # 0.2 K/mm3 (0.1-1.0); Monocytes % 2.5 % (1.7-9.3); Neutrophils # 7.4 K/mm3 (1.8-7.8); Platelet Count 322 K/mm3 (142-424); Red Blood Count 5.13 M/mm3 (4.20-5.40); Red Cell Distribution Width 16.3 % (11.5-17.5); White Blood Count 8.1 K/mm3 (4.8-10.8)
[2023-10-30 07:30] VITALS: PULSE 77; RESP 23; O2SAT 98
[2023-10-30 07:31] LABS: Troponin I < 0.01 ng/ml (0.00-0.034)
[2023-10-30 07:32] LABS: MANUAL DIFFERENTIAL MANUAL DIFFERENTIAL (MANUAL DIFF)
--- NOTE | 2023-10-30 07:32 | PC.NURSE ---
WARM BLANKET PROVIDED FOR PT, NO FURTHER NEEDS AT THIS TIME
--- NOTE | 2023-10-30 07:40 | PC.NURSE ---
XR AT BEDSIDE
[2023-10-30 07:45] VITALS: PULSE 75; RESP 23; O2SAT 98
[2023-10-30 08:25] LABS: Lymphocytes % 11 % (10-50); Monocytes % 2 % (2-9); Neutrophils % 87 % (42-76); Total Cells Counted 100
[2023-10-30 08:26] LABS: Platelet Estimate Normal; RBC Morphology Normal
[2023-10-30 08:43] VITALS: BP 128/80; PULSE 86; RESP 20; TEMP 36.8; O2SAT 98
[2023-10-30 08:48] LABS: HCG Qualitative, Serum Positive (Negative)
[2023-10-30 09:33] LABS: HCG,Quantitative < 2 mIU/ml (0-5.42)
== END 2023-10-30 08:45 | disposition home or self-care (01) ==
PROVIDERS: Emergency Medicine; Emergency Provider Emergency Medicine; PCP Nurse Practitioner Family
DX: R07.9 Chest pain, unspecified (principal); R11.2 Nausea with vomiting, unspecified
CPT/HCPCS: 36415; 71045; 80053; 83690; 84484; 84702; 84703; 85007; 85025; 93005; 96361; 96374; 96375; 99285; J7120

== ENCOUNTER 2024-06-05 14:52 | Emergency (ER) | payer OTHER, SELFPAY ==
[2024-06-05 14:54] VITALS: BP 164/106; PULSE 74; RESP 20; TEMP 36.7; O2SAT 98; BMI 38.0
[2024-06-05 14:59] VITALS: BP 164/106; PULSE 78; O2SAT 96
--- NOTE | 2024-06-05 15:04 | ED_ITS ---
<Statement entered by Adele Martin MD - 06/05/24 23:09> I was consulted by the ALTHEA, and we discussed the complexity of the problems being addressed. I approved the treatment and management plan for this patient's care in the emergency department, thus performing a substantive portion of the medical decision making. Adele Martin MD, MARTHA, FACEP Discharge Plan Disposition Patient Disposition: Home, Self-Care Prescriptions Prescriptions: No Action buprenorphine-naloxone 8-2 mg film 2 film sublingual DAILY Patient Comments: PLACE 1 AND 1/2 FILMS UNDER THE TONGUE AND ALLOW TO DISSOLVE 1 TIME EACH DAY ondansetron 4 mg tablet,disintegrating 4 mg PO Q6H PRN (Reason: nausea and vomiting) Qty: 12 0RF Referrals Follow up/Referrals: Isela Byrd [Primary Care Provider] - See instructions Activity Restrictions/Add. Instructions Additional Instructions/Restrictions: On your bedside ultrasound you have a very small well-circumscribed hypoechoic/fluid-filled structure. This appears to be a cyst with surrounding fibrotic changes. However given its location I recommend you follow-up with [facility] at the comprehensive breast care clinic. My recommendation would be excision of this from a cosmetic standpoint and also for biopsy related issues. Given the duration of your symptoms this is not consistent with an abscess or an infection. Thus we did not choose to pursue incision and drainage and oral antibiotics. I cannot rule out malignancy but I believe that this is unlikely. Please call the numbers below to make an appointment. Call?[phone] tel:[phone] Call?[phone] tel:[phone] Clinical Impressions Clinical Impression: Breast cyst Instructions Patient Instructions: DI for Skin Abscess Print Language Print Language: [place] Discharge ED Provider: Adele Martin General Adult HPI <Jonelle Houston (ED), MUSICAL INSTRUMENT SUPERVISOR - Last Filed: 06/05/24 19:45> General Chief complaint: Skin/Abscess/Foreign Body Stated complaint: pain right breast radiating to shoulder Time Seen by Provider: 06/05/24 14:59 History of Present Illness HPI narrative: This is a 28-year-old female who presents to the ED for a small red area under her right breast that is causing pain in her breast and into her shoulder. She says this has been there for a year. Now this is constant pain in her neck and jaw. She has no fevers, chills. No nauseaor vomiting. Related Data Home Medications ?Medication ?Instructions ?Recorded ?Confirmed buprenorphine 8 mg-naloxone 2 mg 2 film sublingual DAILY 10/30/23 10/30/23 sublingual film Previous Rx's ?Medication ?Instructions ?Recorded ondansetron 4 mg disintegrating 4 mg PO Q6H PRN nausea and 10/30/23 tablet vomiting #12 tabs Allergies Allergy/AdvReac Type Severity Reaction Status Date / Time loratadine (From CLARITIN) Allergy Intermediate I-RASH Verified 01/03/21 17:09 ondansetron (From ZOFRAN ( Allergy Intermediate I-RASH Verified 01/03/21 17:09 HYDROCHLORIDE)) Penicillins (PENICILLINS) Allergy Intermediate I-RASH Verified 01/03/21 17:09 hydrocodone (From Lortab) Allergy Unknown Verified 01/03/21 17:09 allergy reaction PFS <Jonelle Houston (ED), MUSICAL INSTRUMENT SUPERVISOR - Last Filed: 06/05/24 19:45> [facility] Disclaimer: The information contained in this section may have been updated after the patient was seen, as this information can be updated by other users. Surgical History Tubal ligation status Social History (Updated 10/30/23 @ 06:37 by Manolo Guajardo RN) Smoking Status: Never smoker alcohol intake: never substance use type: former substance user current occupational status: employed Travel in the last 8 weeks: None Have you lived/traveled outside [place] in past 30 days?: No Contact w/someone who lives/traveled outside US past 30 days?: No Exposure to someone with infectious disease in past 14 days?: No Do you have a fever (greater than 100.4 F or 38 C)?: No Have you tested positive for COVID-19: No Exposed to someone with COVID-19 in past 14 days?: No Do you have a sore throat?: No Do you have a cough?: No Do you have any weakness?: No Do you have any diarrhea?: No Are you experiencing any unusual bleeding?: No Do you have any muscle aches/pain?: No Do you have any abdominal pain?: No Are you experiencing loss of taste or smell?: No Other Medical History Have you received the Flu Vaccine for this season: Yes Have you received the Pneumonia Vaccine: Yes <Jonelle Prestongurpreetjaime (ED), MUSICAL INSTRUMENT SUPERVISOR - Last Filed: 06/05/24 19:45> ROS Obtained: Yes Systems reviewed as appropriate & no additional complaints except as documented Constitutional Constitutional: Reports as per HPI Physical Exam <Jonelle Prestonsara (ED), MUSICAL INSTRUMENT SUPERVISOR - Last Filed: 06/05/24 19:45> General General appearance: alert Head Head exam: atraumatic and normocephalic Eye Eye exam: Present normal appearance, PERRL and EOMI ENT ENT exam: Present mucous membranes moist Neck Neck exam: Present normal inspection, full ROM and trachea midline Respiratory Respiratory exam: Present normal lung sounds bilaterally Cardiovascular Cardiovascular exam: Present regular rate, normal rhythm, normal heart sounds, +S1 and +S2 Extremities Exam Extremities exam: Present full ROM Neurological Exam Neurological exam: Present alert, oriented X3 and normal gait Skin Skin exam: Present warm, dry and erythema (to right breast, 2cm, soft, no drainage) Medical Decision Making <Jonelle Kilsara (ED), MUSICAL INSTRUMENT SUPERVISOR - Last Filed: 06/05/24 19:45> Medical Records Screening: Per USPSTF and CDC recommendations, given the prevalence of disease in our region, it is our hospital?s policy to screen for HIV and viral Hepatitis for all patients aged 18 and over and those with ongoing risk factors. Anthony Inquiry Pt receiving controlled substance: No Anthony was queried for this patient: No Vital Signs: 06/05/24 14:54 06/05/24 14:59 06/05/24 15:38 Temperature 98.0 F 98.0 F Temperature Source Oral Pulse Rate 78 80 Pulse Rate [Left Radial] 74 Respiratory Rate 20 20 Blood Pressure 164/106 H 145/79 H Blood Pressure [Right Arm] 164/106 H Blood Pressure Mean [Right Arm] 125 02 Sat by Pulse Oximetry 98 96 Oxygen Delivery Method Room Air Room Air Room Air Orders (Tests/Meds): ED MEDICATIONS Discontinued Medications Generic Name Dose Route Start Last Admin Trade Name Freq PRN Reason Stop Dose Admin Ketorolac Tromethamine 60 mg 06/05/24 15:12 06/05/24 15:36 Ketorolac 60mg/2ml Vial IM 06/05/24 15:13 Not Given ONCE ONE ORDERS Category Date Time Status POCUS Point of Care (ER Only) Stat Exams 06/05/24 15:24 Completed Medical Decision Narrative: Insert review patient is a 28-year-old female presenting to the emergency department for evaluation of cyst under right breast. Patient is hemodynamically stable and nontoxic-appearing upon arrival, afebrile. Differ ential diagnosis includes abscess versus cyst. Workup will be conducted with ultrasound bedside. Initial inventions include bedside ultrasound by Dr. Martin. Initial workup reviewed by Dr. Martin. imaging read by Dr. Martin remarkable for cyst. Patient will follow-up with breast center for further evaluation. <Adele Martin MD - Last Filed: 06/05/24 15:37> Vital Signs: 06/05/24 14:54 06/05/24 14:59 06/05/24 15:38 Temperature 98.0 F 98.0 F Temperature Source Oral Pulse Rate 78 80 Pulse Rate [Left Radial] 74 Respiratory Rate 20 20 Blood Pressure 164/106 H 145/79 H Blood Pressure [Right Arm] 164/106 H Blood Pressure Mean [Right Arm] 125 02 Sat by Pulse Oximetry 98 96 Oxygen Delivery Method Room Air Room Air Room Air Orders (Tests/Meds): ED MEDICATIONS Discontinued Medications Generic Name Dose Route Start Last Admin Trade Name Freq PRN Reason Stop Dose Admin Ketorolac Tromethamine 60 mg 06/05/24 15:12 06/05/24 15:36 Ketorolac 60mg/2ml Vial IM 06/05/24 15:13 Not Given ONCE ONE ORDERS Category Date Time Status POCUS Point of Care (ER Only) Stat Exams 06/05/24 15:24 Completed Procedures <Adele Martin MD - Last Filed: 06/05/24 15:37> Miscellaneous Procedure Procedure Performed: Limited soft tissue ultrasound Indication: Soft tissue swelling Identified structures: Location: Inferior aspect of the right breast Findings: A 1 x 0.5 cm hypoechoic lesion without any surrounding inflammatory changes or solid masslike structure is noted Impression: Small well-circumscribed fluid collection most likely a cystic structure without obvious solid tissue mass or surrounding inflammatory changes Images were saved to permanent archive The study was technically adequate Soft Tissue CPT Codes: CPT Neck: 16189-20 CPT Upper extremity: 54428-23 CPT Axilla: 39027-57 CPT Chest wall: 98905-79 CPT Breast: 21994-11-PK/LT (complete), 27397-68-NS/LT (limited), CPT Upper Back: 91029-51 CPT Lower Back: 94202-93 CPT Abdominal Wall: 08976-73 CPT Pelvic Wall: 52974-24 CPT Lower Extremity: 52647-17 CPT Other Soft Tissue: 63668-05 This study was performed by me, and I personally interpreted all images/videos. Based on my clinical judgement, these images were adequate and did not necess itate further imaging. Critical Care <Jonelle Houston (ED), MUSICAL INSTRUMENT SUPERVISOR - Last Filed: 06/05/24 19:45> Critical Care Time Critical Care Time: No
--- NOTE | 2024-06-05 15:28 | PC.NURSE ---
DR EVANS AT BEDSIDE WITH US
[2024-06-05 15:38] VITALS: BP 145/79; PULSE 80; RESP 20; TEMP 36.7; O2SAT 98
== END 2024-06-05 15:42 | disposition home or self-care (01) ==
PROVIDERS: Emergency Provider Student in an Organized Health Care Education/Training Program; PCP Nurse Practitioner Family
DX: N60.01 Solitary cyst of right breast (principal); N64.59 Other signs and symptoms in breast; M25.511 Pain in right shoulder
CPT/HCPCS: 96372; 99283